=== PATIENT | female | born 1950 | race Hispanic/Latino ===

== ENCOUNTER 2017-08-31 03:38 | Emergency (ER) | payer MEDICARE ==
[2017-08-31] MEDS ORDERED: CEFTRIAXONE SODIUM 1 GM ONE (04:05)
[2017-08-31] MEDS ORDERED: LIDOCAINE HCL-MPF 1% 2ML VIAL ONE (04:05)
[2017-08-31] MEDS ORDERED: DEXAMETHASONE SOD PHOSPHATE 10MG/ML 1ML VIAL ONE (04:05)
[2017-08-31] MEDS ORDERED: IPRATROPIUM/ALBUTEROL SULFATE 3 ML SOLUTION IH ONE (04:24)
[2017-08-31 05:08] LABS: BASOPHILS % (AUTO) 0.4 % (0.0-5.0); EOSINOPHILS % (AUTO) 0.1 % (0.0-8.0); HEMATOCRIT 38.2 % (36-48); MEAN CORPUSCULAR HEMOGLOBIN 28.3 pg (27.0-33.0); MEAN CORPUSCULAR HGB CONC 33.5 g/dL (32.0-36.0); MEAN CORPUSCULAR VOLUME 84.5 fL (79-99); MONOCYTES % (AUTO) 11.1 % (3.0-13.0); NEUTROPHILS % (AUTO) 70.4 % (40.0-77.0); PLATELET COUNT (AUTO) 296 K/uL (130-400); RED BLOOD CELL COUNT(AUTO) 4.53 MIL/uL (4.00-5.50); RED CELL DISTRIBUTION WIDTH 14.6 % (11.0-15.5)
[2017-08-31 05:18] LABS: CREATININE 1.1 mg/dL (0.5-1.5); INR 0.92 (0.85-1.15); PARTIAL THROMBOPLASTIN TIME 27.3 SEC (26.3-35.5); POTASSIUM 3.6 mmol/L (3.5-5.1); PROTHROMBIN TIME 9.7 SEC (9.6-11.6)
[2017-08-31] MEDS ORDERED: IOPAMIDOL-370 75 ML VIAL IV ONE (05:37)
== END 2017-08-31 07:48 | disposition home or self-care (01) ==
LOC: EDH 03:38
DX: J45.901 Unspecified asthma with (acute) exacerbation (principal); J32.0 Chronic maxillary sinusitis; E11.9 Type 2 diabetes mellitus without complications; K21.9 Gastro-esophageal reflux disease without esophagitis; I10 Essential (primary) hypertension; Z88.6 Allergy status to analgesic agent; Z90.49 Acquired absence of other specified parts of digestive tract; Z90.710 Acquired absence of both cervix and uterus
CPT/HCPCS: 36415; 70491; 71250; 80048; 85025; 85610; 85730; 87804 ×2; 94640; 96372 ×2; 99285; J0696; J1100; J3490; Q9967

== ENCOUNTER 2018-04-09 12:52 | Observation (INO) | payer MEDICARE ==
[~2018-04-09] VITALS: Ht 154.9 cm; Wt 65.3 kg
[2018-04-09] MEDS ORDERED: ONDANSETRON HCL 4 MG/2 ML VIAL ONE (13:08)
[2018-04-09 13:11] LABS: BASOPHILS % (AUTO) 0.3 % (0.0-5.0); EOSINOPHILS % (AUTO) 0.6 % (0.0-8.0); LYMPHOCYTES % (AUTO) 22.8 % (21.0-51.0); MEAN CORPUSCULAR HEMOGLOBIN 28.3 pg (27.0-33.0); MEAN CORPUSCULAR HGB CONC 33.2 g/dL (32.0-36.0); MEAN CORPUSCULAR VOLUME 85.4 fL (79-99); MONOCYTES % (AUTO) 7.9 % (3.0-13.0); NEUTROPHILS % (AUTO) 68.4 % (40.0-77.0); PLATELET COUNT (AUTO) 260 K/uL (130-400); RED BLOOD CELL COUNT(AUTO) 4.92 MIL/uL (4.00-5.50); RED CELL DISTRIBUTION WIDTH 14.7 % (11.0-15.5); WHITE BLOOD COUNT (AUTO) 10.7 K/uL (4.8-10.8)
[2018-04-09 13:16] LABS: CREATININE 2.7 mg/dL (0.5-1.5); POTASSIUM 3.4 mmol/L (3.5-5.1)
[2018-04-09 13:21] LABS: ALBUMIN 4.5 g/dL (3.5-5.0); BILIRUBIN,TOTAL 0.4 mg/dL (0.2-1.0); TOTAL PROTEIN, SERUM 9.1 g/dL (6.0-8.3)
[2018-04-09 16:35] VITALS: BP 106/50
[2018-04-09] MEDS ORDERED: FLUO10CA21 PO (17:49)
[2018-04-09] MEDS ORDERED: AMLO1CAP6 PO (17:49)
[2018-04-09] MEDS ORDERED: DAPA10TA PO (17:49)
[2018-04-09] MEDS ORDERED: CETI-101 PO (17:49)
[2018-04-09] MEDS ORDERED: PANT40TA25 PO (17:49)
[2018-04-09] MEDS ORDERED: NAPR500T6 PO (17:49)
[2018-04-09] MEDS ORDERED: LOVA10TA2 PO (17:49)
[2018-04-09 19:00] VITALS: BP 119/55
[2018-04-09] MEDS ORDERED: ACETAMINOPHEN 325 MG TAB PO PRN (19:45)
[2018-04-09] MEDS: SODIUM CHLORIDE 0.9% 1000ML 1,000 ML IV SCH (20:01)
[2018-04-09 23:00] VITALS: BP 103/52
[2018-04-10] MEDS: SODIUM CHLORIDE 0.9% 1000ML 1,000 ML IV SCH ×2 (02:27→18:10)
[2018-04-10 03:00] VITALS: BP 105/45
[2018-04-10 05:26] LABS: HEMATOCRIT 33.6 % (36-48); MEAN CORPUSCULAR HEMOGLOBIN 29.5 pg (27.0-33.0); MEAN CORPUSCULAR HGB CONC 34.3 g/dL (32.0-36.0); MEAN CORPUSCULAR VOLUME 86.1 fL (79-99); PLATELET COUNT (AUTO) 209 K/uL (130-400); RED CELL DISTRIBUTION WIDTH 14.8 % (11.0-15.5)
[2018-04-10 05:48] LABS: CREATININE 1.5 mg/dL (0.5-1.5); POTASSIUM 3.5 mmol/L (3.5-5.1)
[2018-04-10] MEDS: INSULIN HUMULIN R 100 UNIT/ML 3ML SQ SCH ×3 (06:10→16:30)
[2018-04-10 08:05] VITALS: BP 104/54
[2018-04-10] MEDS ORDERED: FAMOTIDINE 20MG TAB 20 MG TAB PO SCH (09:00)
[2018-04-10 12:08] VITALS: BP 122/62
[2018-04-10 16:06] VITALS: BP 129/64
== END 2018-04-10 20:11 | disposition home or self-care (01) ==
LOC: EDH 12:52 → EDHIP 14:40 → 3CH 16:09
PROVIDERS: ADMIT Internal Medicine; ATTEND Internal Medicine
DX: K52.9 Noninfective gastroenteritis and colitis, unspecified (principal); E86.0 Dehydration; I10 Essential (primary) hypertension; E11.9 Type 2 diabetes mellitus without complications; K21.9 Gastro-esophageal reflux disease without esophagitis; Z90.710 Acquired absence of both cervix and uterus; R79.89 Other specified abnormal findings of blood chemistry
CPT/HCPCS: 36415 ×2; 74176; 80048; 80053; 82150; 82948 ×3; 83690; 84484; 85025; 85027; 87046; 87205; 87507; 93005; 96360; 96361 ×2; 99285; G0378 ×30; J2405; J7030

== ENCOUNTER → 2018-08-29 | Outpatient (CLI) | payer MEDICARE ==
[~2018-08-29] MED LIST: AMLO1CAP6 PO; CETI-101 PO; DAPA10TA PO; FLUO10CA21 PO; LOVA10TA2 PO; NAPR500T6 PO; PANT40TA25 PO
[2018-08-29 14:50] LABS: BILIRUBIN,TOTAL 0.3 mg/dL (0.2-1.0); CREATININE 1.5 mg/dL (0.5-1.5); POTASSIUM 4.7 mmol/L (3.5-5.1)
== END | disposition home or self-care (01) ==
LOC: LAB 13:45
PROVIDERS: ATTEND Internal Medicine Gastroenterology
DX: Q44.6 Cystic disease of liver (principal)
CPT/HCPCS: 36415; 80053

== ENCOUNTER → 2018-08-31 | Outpatient (CLI) | payer MEDICARE ==
[~2018-08-31] MED LIST changes: +IOHEXOL 350 MG/ML 100ML INFUS..BTL IV ONE
== END | disposition home or self-care (01) ==
LOC: RAH 07:35
PROVIDERS: ATTEND Internal Medicine Gastroenterology
DX: K76.89 Other specified diseases of liver (principal); N28.1 Cyst of kidney, acquired; Z90.49 Acquired absence of other specified parts of digestive tract
CPT/HCPCS: 74170; Q9967

== ENCOUNTER 2019-08-09 14:23 | Emergency (ER) | payer MEDICARE ==
[~2019-08-09 14:23] MED LIST changes: -CETI-101 PO; +CETI-109 PO; -IOHEXOL 350 MG/ML 100ML INFUS..BTL IV ONE
[2019-08-09 14:57] LABS: BASOPHILS % (AUTO) 0.5 % (0.0-5.0); EOSINOPHILS % (AUTO) 0.2 % (0.0-8.0); HEMATOCRIT 35.8 % (36-48); LYMPHOCYTES % (AUTO) 24.1 % (21.0-51.0); MEAN CORPUSCULAR HEMOGLOBIN 28.7 pg (27.0-33.0); MEAN CORPUSCULAR HGB CONC 34.1 g/dL (32.0-36.0); MEAN CORPUSCULAR VOLUME 84.2 fL (79-99); MONOCYTES % (AUTO) 7.6 % (3.0-13.0); PLATELET COUNT (AUTO) 233 K/uL (130-400); RED BLOOD CELL COUNT(AUTO) 4.25 MIL/uL (4.00-5.50); RED CELL DISTRIBUTION WIDTH 14.4 % (11.0-15.5); WHITE BLOOD COUNT (AUTO) 8.8 K/uL (4.8-10.8)
[2019-08-09 15:08] LABS: POTASSIUM 3.8 mmol/L (3.5-5.1)
[2019-08-09 15:09] LABS: INR 0.95 (0.85-1.15); PARTIAL THROMBOPLASTIN TIME 25.2 SEC (26.3-35.5)
[2019-08-09 15:15] LABS: ALBUMIN 3.8 g/dL (3.5-5.0); BILIRUBIN,TOTAL 0.3 mg/dL (0.2-1.0); TOTAL PROTEIN, SERUM 7.7 g/dL (6.0-8.3)
== END 2019-08-09 18:27 | disposition home or self-care (01) ==
LOC: EDH 14:23
DX: M54.12 Radiculopathy, cervical region (principal); R07.89 Other chest pain; I10 Essential (primary) hypertension; K21.9 Gastro-esophageal reflux disease without esophagitis; E11.9 Type 2 diabetes mellitus without complications; J45.909 Unspecified asthma, uncomplicated; E78.00 Pure hypercholesterolemia, unspecified; Z90.49 Acquired absence of other specified parts of digestive tract; Z90.710 Acquired absence of both cervix and uterus; Z88.5 Allergy status to narcotic agent; Z88.1 Allergy status to other antibiotic agents
CPT/HCPCS: 36415; 70450; 71045; 72125; 80053; 82550; 82948; 84484; 85025; 85610; 85730; 93005

== ENCOUNTER 2019-12-12 21:54 | Inpatient (IN) | payer MEDICARE ==
[~2019-12-12] VITALS: Ht 154.9 cm; Wt 73.9 kg
[~2019-12-12 21:54] MED LIST changes: -CETI-109 PO; +CETI-89 PO; -PANT40TA25 PO; +PANT40TA54 PO
[2019-12-12] MEDS ORDERED: ONDANSETRON HCL 4 MG/2 ML VIAL ONE (22:08)
[2019-12-12] MEDS ORDERED: SODIUM CHLORIDE 0.9% 1000ML 1,000 ML IV ONE ×2 (22:09→23:42)
[2019-12-12 22:19] LABS: APPEARANCE,URINE Clear (CLEAR); BILIRUBIN,URINE Negative (NEGATIVE); COLOR,URINE Yellow (YELLOW); GLUCOSE, URINE (UA) Negative (NEGATIVE); KETONES,URINE Negative (NEGATIVE); LEUKOCYTE ESTERASE ,URINE Moderate (NEGATIVE); NITRATE,URINE Negative (NEGATIVE); OCCULT BLOOD,URINE Negative (NEGATIVE); PROTEIN,URINE POS 1+ mg/dL (NEGATIVE)
[2019-12-12 22:31] LABS: BASOPHILS % (AUTO) 0.1 % (0.0-5.0); EOSINOPHILS % (AUTO) 0.3 % (0.0-8.0); HEMATOCRIT 38.7 % (36-48); LYMPHOCYTES % (AUTO) 12.9 % (21.0-51.0); MEAN CORPUSCULAR HEMOGLOBIN 27.4 pg (27.0-33.0); MEAN CORPUSCULAR HGB CONC 34.1 g/dL (32.0-36.0); MEAN CORPUSCULAR VOLUME 80.3 fL (79-99); MONOCYTES % (AUTO) 6.5 % (3.0-13.0); NEUTROPHILS % (AUTO) 79.5 % (40.0-77.0); PLATELET COUNT (AUTO) 283 K/uL (130-400); RED BLOOD CELL COUNT(AUTO) 4.82 MIL/uL (4.00-5.50); RED CELL DISTRIBUTION WIDTH 12.9 % (11.0-15.5); WHITE BLOOD COUNT (AUTO) 21.4 K/uL (4.8-10.8)
[2019-12-12 22:33] LABS: BACTERIA,URINE Moderate /HPF (None Seen); MUCUS,URINE Rare LPF (None Seen); RBC,URINE 0-1 /HPF (0-1); SQUAMOUS EPITHELIAL CELL,UR Rare /HPF (0-2)
[2019-12-12 22:43] LABS: CREATININE 1.2 mg/dL (0.5-1.5); POTASSIUM 3.6 mmol/L (3.5-5.1)
[2019-12-12] MEDS ORDERED: ZOSYN 3.375GM+NS 50ML 50 ML IV ONE ×2 (22:43→22:47)
[2019-12-12 22:48] LABS: ALBUMIN 3.9 g/dL (3.5-5.0); BILIRUBIN,TOTAL 0.3 mg/dL (0.2-1.0); TOTAL PROTEIN, SERUM 7.8 g/dL (6.0-8.3)
[2019-12-12] MEDS ORDERED: IOHEXOL-350 75 ML VIAL IV ONE (23:54)
[2019-12-13] MEDS ORDERED: METRONIDAZOLE 500MG/100ML BAG 100 ML ONE (04:28)
[2019-12-13] MEDS ORDERED: LEVOFLOXACIN 750 MG/D5W 150 ML 0 ML ONE (04:28)
[2019-12-13] MEDS ORDERED: SODIUM CHLORIDE 0.9% 1000ML 1,000 ML IV ONE (04:31)
[2019-12-13 08:30] VITALS: BP 136/57
[2019-12-13 08:47] VITALS: BP 136/57
[2019-12-13] MEDS: PANTOPRAZOLE 40 MG/VIAL IVP SCH (09:00)
[2019-12-13] MEDS: TRAMADOL HCL 50 MG TABLET PO PRN (11:52)
[2019-12-13] MEDS: SODIUM CHLORIDE 0.9% 1000ML 1,000 ML IV SCH (11:53)
[2019-12-13 12:00] VITALS: BP 135/63
[2019-12-13] MEDS: METRONIDAZOLE 500MG/100ML BAG 100 ML IVPB SCH ×2 (13:48→19:46)
--- NOTE | 2019-12-13 15:24 | NUR ---
MET W PATIENT FOR DISCHARGE PLANNING LIVES [facility], IS INDEPENDENT, NO DME, NO HH, NO PROVIDER FAMILY IN [place], SISTER MERC[facility] WILL PROVIDE TRANSPORT HOME Addendum: 12/13/19 at 1526 by KIERA ASENCIO RN CM Amended: Links added.
--- NOTE | 2019-12-13 15:26 | NUR ---
DISPO TO HOME, NO SERVICES ANTICIPATED Addendum: 12/13/19 at 1529 by KIERA ASENCIO RN CM Amended: Links added.
[2019-12-13 16:00] VITALS: BP 135/63
[2019-12-13 19:10] VITALS: BP 141/62
[2019-12-13] MEDS ORDERED: ZOSYN 3.375GM+NS 50ML 50 ML IV ONE (19:41)
[2019-12-13] MEDS ORDERED: MORPHINE SULFATE 2 MG/ML 1ML SYG ONE (19:41)
[2019-12-13] MEDS ORDERED: CEFTRIAXONE SODIUM 1 GM IVP ONE (19:45)
[2019-12-13] MEDS: ZOSYN 3.375GM+NS 50ML 50 ML IV SCH (19:45)
[2019-12-13] MEDS ORDERED: MORPHINE SULFATE 2 MG/ML 1ML SYG IVP PRN (19:45)
[2019-12-13] MEDS ORDERED: CEFTRIAXONE SODIUM 1 GM ONE (19:58)
--- NOTE | 2019-12-13 20:33 | NUR ---
1 mg of morphine given at 194
[2019-12-13 23:13] VITALS: BP 130/62
[2019-12-14] MEDS: ZOSYN 3.375GM+NS 50ML 50 ML IV SCH ×3 (03:11→20:08)
[2019-12-14] MEDS: SODIUM CHLORIDE 0.9% 1000ML 1,000 ML IV SCH ×2 (03:11→18:35)
[2019-12-14] MEDS: METRONIDAZOLE 500MG/100ML BAG 100 ML IVPB SCH ×3 (03:13→20:08)
[2019-12-14 03:30] VITALS: BP 128/62
[2019-12-14 03:58] LABS: HEMATOCRIT 33.1 % (36-48); MEAN CORPUSCULAR HEMOGLOBIN 28.2 pg (27.0-33.0); MEAN CORPUSCULAR HGB CONC 34.1 g/dL (32.0-36.0); MEAN CORPUSCULAR VOLUME 82.5 fL (79-99); RED BLOOD CELL COUNT(AUTO) 4.01 MIL/uL (4.00-5.50); RED CELL DISTRIBUTION WIDTH 12.8 % (11.0-15.5); WHITE BLOOD COUNT (AUTO) 7.6 K/uL (4.8-10.8)
[2019-12-14 04:26] LABS: ALBUMIN 2.9 g/dL (3.5-5.0); BILIRUBIN,TOTAL 0.3 mg/dL (0.2-1.0); POTASSIUM 3.8 mmol/L (3.5-5.1); TOTAL PROTEIN, SERUM 6.1 g/dL (6.0-8.3)
[2019-12-14 08:00] VITALS: BP 157/72
[2019-12-14] MEDS: PANTOPRAZOLE 40 MG/VIAL IVP SCH (08:30)
[2019-12-14] MEDS: TRAMADOL HCL 50 MG TABLET PO PRN (08:38)
[2019-12-14] MEDS ORDERED: LEVOFLOXACIN 750 MG/D5W 150 ML 150 ML IV SCH (09:00)
[2019-12-14] MEDS ORDERED: LOSA50TA64 PO (11:23)
[2019-12-14] MEDS ORDERED: AMLO-257 PO (11:23)
[2019-12-14] MEDS ORDERED: FLUO10CA23 PO (11:23)
[2019-12-14] MEDS ORDERED: CETI10TA57 PO (11:23)
[2019-12-14] MEDS ORDERED: SITA100T12 PO (11:23)
[2019-12-14 11:28] VITALS: BP 162/62
[2019-12-14] MEDS: ONDANSETRON HCL 4 MG/2 ML VIAL IVP PRN ×2 (12:22→20:08)
[2019-12-14 16:00] VITALS: BP 150/60
[2019-12-14 19:50] VITALS: BP 153/57
--- NOTE | 2019-12-14 20:08 | NUR ---
nausea c/o nausea, no vomiting, zofran 4 mg ivp given as ordered, continue ivf as ordered
[2019-12-14] MEDS ORDERED: ACET-2247 PO (20:56)
--- NOTE | 2019-12-14 21:00 | NUR ---
med effect nausea subsided, continue ivf as ordered
[2019-12-15 00:01] VITALS: BP 120/48
[2019-12-15] MEDS: ZOSYN 3.375GM+NS 50ML 50 ML IV SCH ×3 (03:43→21:19)
[2019-12-15] MEDS: METRONIDAZOLE 500MG/100ML BAG 100 ML IVPB SCH ×3 (03:43→21:10)
[2019-12-15 04:07] VITALS: BP 128/58
[2019-12-15] MEDS: ONDANSETRON HCL 4 MG/2 ML VIAL IVP PRN ×3 (05:33→18:19)
[2019-12-15 08:00] VITALS: BP 135/71
[2019-12-15 09:51] LABS: HEMATOCRIT 35.1 % (36-48); MEAN CORPUSCULAR HEMOGLOBIN 27.9 pg (27.0-33.0); MEAN CORPUSCULAR HGB CONC 33.9 g/dL (32.0-36.0); MEAN CORPUSCULAR VOLUME 82.4 fL (79-99); PLATELET COUNT (AUTO) 230 K/uL (130-400); RED BLOOD CELL COUNT(AUTO) 4.26 MIL/uL (4.00-5.50); RED CELL DISTRIBUTION WIDTH 12.7 % (11.0-15.5); WHITE BLOOD COUNT (AUTO) 7.6 K/uL (4.8-10.8)
[2019-12-15 10:00] LABS: CREATININE 1.1 mg/dL (0.5-1.5); POTASSIUM 3.6 mmol/L (3.5-5.1)
[2019-12-15 10:12] LABS: EOSINOPHILS % (MANUAL) 1 % (1-6); LYMPHOCYTES % (MANUAL) 19 % (22-44); MAN.DIFF COMMENT-IMPRESSION MANUAL DIFFERENTIAL; MONOCYTES % (MANUAL) 14 % (2-9); PLATELET MORPHOLOGY COMMENT ADEQUATE; REACTIVE LYMPHOCYTES 4 % (0-0); SEGMENTED NEUTROPHILS % 62 % (40-70)
[2019-12-15] MEDS: SODIUM CHLORIDE 0.9% 1000ML 1,000 ML IV SCH (11:25)
[2019-12-15] MEDS: PANTOPRAZOLE 40 MG/VIAL IVP SCH (11:25)
[2019-12-15] MEDS: ACETAMINOPHEN 325 MG TAB PO PRN ×2 (11:26→16:47)
[2019-12-15] MEDS: INSULIN HUMULIN R 100 UNIT/ML 3ML SQ SCH ×3 (11:30→21:00)
[2019-12-15 12:00] VITALS: BP 155/71
--- NOTE | 2019-12-15 13:03 | NUR ---
GI consult Per Dr. Pritchard, recommends that patient remain NPO and surgery to be consulted. Left message for Dr. Garrett regarding recommendation. Pending approval to place surgery consult.
[2019-12-15 16:00] VITALS: BP 140/61
[2019-12-15 20:00] VITALS: BP 166/60
--- NOTE | 2019-12-15 20:00 | NUR ---
PM Assessment Received pt with NS at 75cc/hr infusing well, routine assessment done, plan of care discuss, reminded NPO for now, made aware we are still pending surgical consult at this time. Per pt stated she would like to have surgery to resolved her problem of on & off abdominal discomfort. At this time c/o of headache secondary to feeling nauseated. Pt made aware that she was just medicated with Zofran at around 1800. Offered & agreed to have ice pack application into her head area & I will continue to monitor how she is, agreed.
--- NOTE | 2019-12-15 20:30 | NUR ---
Re: headache Pt re-evaluated re: her headache after application of cold compress. Per pt stated the ice pack help, now feeling OK & also requested to have ice pack on both her shoulder area, done. Per pt stated now she will try to go to sleep.
--- NOTE | 2019-12-15 20:33 | NUR ---
Per Dr. Garrett, place patient on [facility]. No surgeon call, consult to wait til Wednesday.
[2019-12-16] VITALS (7 sets, daily range): BP systolic 136–162; BP diastolic 57–69
[2019-12-16] MEDS: SODIUM CHLORIDE 0.9% 1000ML 1,000 ML IV SCH ×2 (01:14→12:30)
[2019-12-16] MEDS: ZOSYN 3.375GM+NS 50ML 50 ML IV SCH ×3 (04:05→19:47)
[2019-12-16] MEDS: METRONIDAZOLE 500MG/100ML BAG 100 ML IVPB SCH ×3 (04:05→19:47)
[2019-12-16] MEDS: INSULIN HUMULIN R 100 UNIT/ML 3ML SQ SCH ×4 (07:30→21:00)
[2019-12-16] MEDS: AMLODIPINE BESYLATE 5 MG TAB PO SCH (09:14)
[2019-12-16] MEDS: PANTOPRAZOLE 40 MG/VIAL IVP SCH (09:15)
[2019-12-16] MEDS: LOSARTAN 50 MG TABLET PO SCH (09:15)
[2019-12-16] MEDS: TRAMADOL HCL 50 MG TABLET PO PRN (11:27)
[2019-12-16] MEDS: ONDANSETRON HCL 4 MG/2 ML VIAL IVP PRN (19:47)
[2019-12-17 03:36] VITALS: BP 141/66
[2019-12-17] MEDS: ZOSYN 3.375GM+NS 50ML 50 ML IV SCH ×3 (04:41→21:24)
[2019-12-17] MEDS: METRONIDAZOLE 500MG/100ML BAG 100 ML IVPB SCH ×3 (04:41→21:25)
[2019-12-17] MEDS: INSULIN HUMULIN R 100 UNIT/ML 3ML SQ SCH ×4 (06:14→21:32)
[2019-12-17] MEDS: SODIUM CHLORIDE 0.9% 1000ML 1,000 ML IV SCH ×3 (06:14→23:54)
[2019-12-17 08:25] VITALS: BP 160/61
[2019-12-17] MEDS: AMLODIPINE BESYLATE 5 MG TAB PO SCH (08:35)
[2019-12-17] MEDS: PANTOPRAZOLE 40 MG/VIAL IVP SCH (08:36)
[2019-12-17] MEDS: LOSARTAN 50 MG TABLET PO SCH (08:36)
[2019-12-17 11:56] VITALS: BP 155/53
[2019-12-17] MEDS ORDERED: ZOSYN 3.375GM+NS 50ML 50 ML IV ONE (12:02)
[2019-12-17 17:09] VITALS: BP 153/71
[2019-12-17] MEDS: TRAMADOL HCL 50 MG TABLET PO PRN (18:43)
[2019-12-17 19:00] VITALS: BP 140/61
--- NOTE | 2019-12-17 21:25 | NUR ---
MEDS SHIFT ASSESSMENT DONE, PLEASE REFER TO CHART. DUE MEDS ADMINISTERED, TOLERATED WELL. KEPT RESTED AND COMFORTABLE. CALL LIGHT WITHIN REACH. WILL MONITOR PT. Addendum: 12/17/19 at 2333 by MALISSA VANEGAS RN RN Amended: Links added.
[2019-12-17 23:00] VITALS: BP 129/53
--- NOTE | 2019-12-18 02:00 | NUR ---
ROUNDS PT RESTING WELL, NO DISTRESS NOTED. KEPT RESTED AND COMFORTABLE. CALL LIGHT WITHIN REACH. WILL MONITOR PT.
[2019-12-18 03:00] VITALS: BP 146/66
[2019-12-18] MEDS: METRONIDAZOLE 500MG/100ML BAG 100 ML IVPB SCH ×3 (03:24→20:51)
[2019-12-18] MEDS: ZOSYN 3.375GM+NS 50ML 50 ML IV SCH ×3 (03:24→20:51)
[2019-12-18] MEDS: SODIUM CHLORIDE 0.9% 1000ML 1,000 ML IV SCH ×2 (03:24→18:55)
--- NOTE | 2019-12-18 05:15 | NUR ---
SHOWER PT HAD HER SHOWER, TOLERATED WELL. DENIES ANY ABDOMINAL DISCOMFORT AT THIS TIME. NO DISTRESS NOTED. PLACED BACK ON IVF AND IV ZOSYN INFUSIONS. FOR MORE CARE.
[2019-12-18] MEDS: INSULIN HUMULIN R 100 UNIT/ML 3ML SQ SCH ×4 (05:55→20:56)
[2019-12-18 07:30] VITALS: BP 159/71
[2019-12-18 11:00] VITALS: BP 159/53
[2019-12-18] MEDS: LOSARTAN 50 MG TABLET PO SCH (11:04)
[2019-12-18] MEDS: AMLODIPINE BESYLATE 5 MG TAB PO SCH (11:04)
[2019-12-18] MEDS: PANTOPRAZOLE 40 MG/VIAL IVP SCH (11:04)
[2019-12-18 16:00] VITALS: BP 159/53
[2019-12-18 20:25] VITALS: BP 145/60
[2019-12-18 23:57] VITALS: BP 145/62
[2019-12-19 03:47] VITALS: BP 128/60
[2019-12-19] MEDS: METRONIDAZOLE 500MG/100ML BAG 100 ML IVPB SCH ×2 (03:52→13:49)
[2019-12-19] MEDS: ZOSYN 3.375GM+NS 50ML 50 ML IV SCH ×2 (03:52→13:49)
[2019-12-19] MEDS: ACETAMINOPHEN 325 MG TAB PO PRN ×2 (03:52→10:42)
[2019-12-19] MEDS: SODIUM CHLORIDE 0.9% 1000ML 1,000 ML IV SCH (06:41)
[2019-12-19] MEDS: INSULIN HUMULIN R 100 UNIT/ML 3ML SQ SCH (06:42)
[2019-12-19 07:30] VITALS: BP 148/58
[2019-12-19] MEDS: LOSARTAN 50 MG TABLET PO SCH (10:41)
[2019-12-19] MEDS: AMLODIPINE BESYLATE 5 MG TAB PO SCH (10:41)
[2019-12-19] MEDS: PANTOPRAZOLE 40 MG/VIAL IVP SCH (10:41)
[2019-12-19 11:00] VITALS: BP 154/62
[2019-12-19 16:00] VITALS: BP 134/61
[2019-12-19 19:35] VITALS: BP 156/73
--- NOTE | 2019-12-19 20:45 | NUR ---
Discharge instructions given to patient, verbalized understanding. Saline lock had already been removed with catheter intact. Patient taken via wheelchair to private car.
== END 2019-12-19 19:55 | disposition home or self-care (01) | DRG 872 ==
LOC: EDH 21:54 → EDHIP 12-13 01:54 → OBSVTOIN 12-13 01:54 → 3BH 12-13 07:44
PROVIDERS: ADMIT Internal Medicine; ATTEND Internal Medicine
DX: A41.9 Sepsis, unspecified organism (principal); N39.0 Urinary tract infection, site not specified; K57.32 Diverticulitis of large intestine without perforation or abscess without bleeding; E78.5 Hyperlipidemia, unspecified; I10 Essential (primary) hypertension; E11.9 Type 2 diabetes mellitus without complications; B96.1 Klebsiella pneumoniae [K. pneumoniae] as the cause of diseases classified elsewhere; Z88.1 Allergy status to other antibiotic agents; Z83.2 Family history of diseases of the blood and blood-forming organs and certain disorders involving the immune mechanism; Z82.49 Family history of ischemic heart disease and other diseases of the circulatory system; Z82.69 Family history of other diseases of the musculoskeletal system and connective tissue; Z82.3 Family history of stroke; Z83.6 Family history of other diseases of the respiratory system; Z80.9 Family history of malignant neoplasm, unspecified; Z90.711 Acquired absence of uterus with remaining cervical stump; Z90.49 Acquired absence of other specified parts of digestive tract
CPT/HCPCS: 36415; 74177; 80048; 80053; 81001; 82948; 83605; 83690; 85025; 85027; 87040; 87077; 87088; 87186; 99291; C9113; G0378; J0696; J1815; J1956; J2405; J2543; J3490; J7030; Q9967

== ENCOUNTER 2020-04-23 13:47 | Emergency (ER) | payer MEDICARE ==
[~2020-04-23 13:47] MED LIST changes: +ACET-2247 PO; +AMLO-257 PO; -AMLO1CAP6 PO; -CETI-89 PO; +CETI10TA57 PO; -DAPA10TA PO; -FLUO10CA21 PO; +FLUO10CA23 PO; +LOSA50TA64 PO; -LOVA10TA2 PO; -NAPR500T6 PO; -PANT40TA54 PO; +SITA100T12 PO
[2020-04-23] MEDS ORDERED: ADENOSINE 3 MG/ML 2ML VIAL IV ONE (14:08)
[2020-04-23 14:13] LABS: BASOPHILS % (AUTO) 0.7 % (0.0-5.0); EOSINOPHILS % (AUTO) 1.9 % (0.0-8.0); HEMATOCRIT 39.5 % (36-48); LYMPHOCYTES % (AUTO) 31.7 % (21.0-51.0); MEAN CORPUSCULAR HEMOGLOBIN 28.4 pg (27.0-33.0); MEAN CORPUSCULAR HGB CONC 34.2 g/dL (32.0-36.0); MEAN CORPUSCULAR VOLUME 83.2 fL (79-99); NEUTROPHILS % (AUTO) 59.3 % (40.0-77.0); PLATELET COUNT (AUTO) 293 K/uL (130-400); RED BLOOD CELL COUNT(AUTO) 4.75 MIL/uL (4.00-5.50); RED CELL DISTRIBUTION WIDTH 12.8 % (11.0-15.5)
[2020-04-23] MEDS ORDERED: METOPROLOL TARTRATE 1 MG/ML 5ML VIAL IV ONE (14:14)
[2020-04-23 14:28] LABS: CREATININE 1.2 mg/dL (0.5-1.5); POTASSIUM 3.7 mmol/L (3.5-5.1)
[2020-04-23 14:29] LABS: INR 0.91 (0.85-1.15); PARTIAL THROMBOPLASTIN TIME 29.2 SEC (26.3-35.5); PROTHROMBIN TIME 9.9 SEC (9.6-11.6)
[2020-04-23 14:33] LABS: ALBUMIN 4.4 g/dL (3.5-5.0); BILIRUBIN,TOTAL 0.4 mg/dL (0.2-1.0); TOTAL PROTEIN, SERUM 8.8 g/dL (6.0-8.3)
[2020-06-16] MEDS ORDERED: APIX2.5T PO (10:54)
[2020-06-16] MEDS ORDERED: PANT40TA55 PO (10:54)
== END 2020-04-23 16:34 | disposition home or self-care (01) ==
LOC: EDH 13:47
DX: I47.1 Supraventricular tachycardia (principal); J45.909 Unspecified asthma, uncomplicated; E11.9 Type 2 diabetes mellitus without complications; I10 Essential (primary) hypertension; E78.00 Pure hypercholesterolemia, unspecified; K21.9 Gastro-esophageal reflux disease without esophagitis; Z88.1 Allergy status to other antibiotic agents; Z88.6 Allergy status to analgesic agent; Z90.710 Acquired absence of both cervix and uterus; Z98.890 Other specified postprocedural states
CPT/HCPCS: 36415; 71045; 80053; 82550; 84484; 85025; 85610; 85730; 93005; 96361; 96374; 96375; 99285; J0153; J3490

== ENCOUNTER → 2020-04-29 | Outpatient (CLI) | payer MEDICARE | END | disposition home or self-care (01) | LOC: RAH 13:03 | PROVIDERS: ATTEND Internal Medicine | DX: Z12.31 Encounter for screening mammogram for malignant neoplasm of breast (principal); N64.89 Other specified disorders of breast | CPT/HCPCS: 77067 ==

== ENCOUNTER 2020-09-10 14:47 | Emergency (ER) | payer MEDICARE ==
[~2020-09-10 14:47] MED LIST changes: +APIX2.5T PO; +PANT40TA55 PO
[2020-09-10] MEDS ORDERED: IBUPROFEN 400 MG TABLET ONE (15:29)
[2020-09-10] MEDS ORDERED: ACETAMINOPHEN EXTRA STRENGTH 500 MG TABLET ONE (15:30)
[2020-09-10] MEDS ORDERED: IBUPROFEN 200 MG TAB ONE (15:30)
[2020-09-10 15:34] LABS: BASOPHILS % (AUTO) 0.7 % (0.0-5.0); EOSINOPHILS % (AUTO) 0.2 % (0.0-8.0); HEMATOCRIT 35.1 % (36-48); MEAN CORPUSCULAR HEMOGLOBIN 27.5 pg (27.0-33.0); MEAN CORPUSCULAR HGB CONC 34.2 g/dL (32.0-36.0); MEAN CORPUSCULAR VOLUME 80.3 fL (79-99); MONOCYTES % (AUTO) 5.9 % (3.0-13.0); PLATELET COUNT (AUTO) 210 K/uL (130-400); RED BLOOD CELL COUNT(AUTO) 4.37 MIL/uL (4.00-5.50); RED CELL DISTRIBUTION WIDTH 13.7 % (11.0-15.5); WHITE BLOOD COUNT (AUTO) 6.1 K/uL (4.8-10.8)
[2020-09-10 15:41] LABS: APPEARANCE,URINE Clear (CLEAR); BILIRUBIN,URINE Negative (NEGATIVE); COLOR,URINE Yellow (YELLOW); GLUCOSE, URINE (UA) Negative (NEGATIVE); KETONES,URINE Negative (NEGATIVE); LEUKOCYTE ESTERASE ,URINE Negative (NEGATIVE); NITRATE,URINE Negative (NEGATIVE); OCCULT BLOOD,URINE Negative (NEGATIVE); PH,URINE 6.5 (5.0-8.0); PROTEIN,URINE Trace mg/dL (NEGATIVE); UROBILINOGEN,URINE 0.2 mg/dL (0.2-1.0)
[2020-09-10 15:46] LABS: RAPID GROUP A STREP NEGATIVE (NEGATIVE)
[2020-09-10 15:47] LABS: POTASSIUM 3.2 mmol/L (3.5-5.1)
[2020-09-10 15:49] LABS: BACTERIA,URINE Rare /HPF (None Seen); RBC,URINE None Seen /HPF (0-1); SQUAMOUS EPITHELIAL CELL,UR 0-2 /HPF (0-2); WBC,URINE 0-1 /HPF (0-1)
[2020-09-10 15:50] LABS: INR 1.02 (0.85-1.15); PROTHROMBIN TIME 11.1 SEC (9.6-11.6)
[2020-09-10 15:51] LABS: PARTIAL THROMBOPLASTIN TIME 28.2 SEC (26.3-35.5)
[2020-09-10 15:52] LABS: BILIRUBIN,TOTAL 0.4 mg/dL (0.2-1.0); TOTAL PROTEIN, SERUM 7.8 g/dL (6.0-8.3)
[2020-09-10] MEDS ORDERED: POTASSIUM BICARB/CIT AC 25 MEQ TABLET.EFF ONE (15:56)
[2020-09-10 16:00] LABS: B-TYPE NATRIURETIC PEPTIDE 25 pg/mL (0-100)
[2020-09-13] MEDS ORDERED: OMEP40CA13 PO (17:56)
[2020-09-13] MEDS ORDERED: CETI10TA86 PO (17:56)
== END 2020-09-10 17:40 | disposition home or self-care (01) ==
LOC: EDH 14:47
DX: B34.9 Viral infection, unspecified (principal); Z20.822 Contact with and (suspected) exposure to COVID-19; E11.9 Type 2 diabetes mellitus without complications; I10 Essential (primary) hypertension; E78.00 Pure hypercholesterolemia, unspecified; J45.909 Unspecified asthma, uncomplicated; Z88.1 Allergy status to other antibiotic agents; Z88.6 Allergy status to analgesic agent; Z90.49 Acquired absence of other specified parts of digestive tract; Z90.710 Acquired absence of both cervix and uterus
CPT/HCPCS: 36415; 71045; 80053; 81001; 82550; 83605; 83880; 84145; 85025; 85610; 85730; 87040 ×2; 87426; 87804 ×2; 87880; 93005; 96360; 96361; 99285; J7030; U0003

== ENCOUNTER 2020-09-12 23:38 | Inpatient (IN) | payer MEDICARE ==
[~2020-09-12] VITALS: Ht 154.9 cm; Wt 72.6 kg
[~2020-09-12 23:38] MED LIST changes: -FLUO10CA23 PO; +FLUO10CA24 PO
[2020-09-13] MEDS ORDERED: CEFTRIAXONE 2GM VIAL ONE (00:01)
[2020-09-13] MEDS ORDERED: ACETAMINOPHEN 500 MG TABLET ONE (00:02)
[2020-09-13] MEDS ORDERED: 0.9%NACL 50ML 50 ML IV ONE (00:02)
[2020-09-13 00:03] LABS: BASOPHILS % (AUTO) 0.6 % (0.0-5.0); EOSINOPHILS % (AUTO) 0.4 % (0.0-8.0); HEMATOCRIT 33.6 % (36-48); LYMPHOCYTES % (AUTO) 27.8 % (21.0-51.0); MEAN CORPUSCULAR HEMOGLOBIN 26.6 pg (27.0-33.0); MEAN CORPUSCULAR HGB CONC 33.6 g/dL (32.0-36.0); MEAN CORPUSCULAR VOLUME 79.1 fL (79-99); PLATELET COUNT (AUTO) 197 K/uL (130-400); RED BLOOD CELL COUNT(AUTO) 4.25 MIL/uL (4.00-5.50); RED CELL DISTRIBUTION WIDTH 13.5 % (11.0-15.5)
[2020-09-13 00:16] LABS: CARBON DIOXIDE 24 mmol/L (21-32); CHLORIDE 101 mmol/L (101-111); CREATININE 1.1 mg/dL (0.5-1.5); GLOMERULAR FILTR. RATE CALC 52 mL/min (>60); GLUCOSE,RANDOM 168 mg/dL (70-105); POTASSIUM 3.4 mmol/L (3.5-5.1); SODIUM SERUM 136 mmol/L (136-145); UREA NITROGEN, BLOOD 9 mg/dL (7-18)
[2020-09-13 00:21] LABS: INR 1.03 (0.85-1.15); PROTHROMBIN TIME 11.2 SEC (9.6-11.6)
[2020-09-13 00:22] LABS: PARTIAL THROMBOPLASTIN TIME 29.2 SEC (26.3-35.5)
[2020-09-13 00:27] LABS: ALANINE AMINOTRANSFERASE 31 U/L (12-78); ALBUMIN 3.8 g/dL (3.5-5.0); ASPARTATE AMINOTRANSFERASE 30 U/L (10-37); BILIRUBIN,TOTAL 0.4 mg/dL (0.2-1.0); CREATINE KINASE, TOTAL 113 U/L (21-232); MYOGLOBIN 45 ng/mL (10-92); TROPONIN I < 0.04 ng/mL (0.00-0.06)
[2020-09-13 00:50] LABS: B-TYPE NATRIURETIC PEPTIDE 19 pg/mL (0-100)
[2020-09-13 01:25] LABS: APPEARANCE,URINE Clear (CLEAR); BILIRUBIN,URINE Negative (NEGATIVE); COLOR,URINE Yellow (YELLOW); GLUCOSE, URINE (UA) Negative (NEGATIVE); KETONES,URINE Negative (NEGATIVE); LEUKOCYTE ESTERASE ,URINE Trace (NEGATIVE); NITRATE,URINE Negative (NEGATIVE); OCCULT BLOOD,URINE Negative (NEGATIVE); PH,URINE 6.5 (5.0-8.0); PROTEIN,URINE Trace mg/dL (NEGATIVE); UROBILINOGEN,URINE 0.2 mg/dL (0.2-1.0)
[2020-09-13 01:37] LABS: BACTERIA,URINE None Seen /HPF (None Seen); RBC,URINE None Seen /HPF (0-1); WBC,URINE 0-1 /HPF (0-1)
[2020-09-13 04:43] LABS: BASOPHILS % (AUTO) 0.4 % (0.0-5.0); LYMPHOCYTES % (AUTO) 34.5 % (21.0-51.0); MEAN CORPUSCULAR HEMOGLOBIN 27.2 pg (27.0-33.0); MONOCYTES % (AUTO) 8.4 % (3.0-13.0); NEUTROPHILS % (AUTO) 56.5 % (40.0-77.0); PLATELET COUNT (AUTO) 176 K/uL (130-400); RED BLOOD CELL COUNT(AUTO) 3.75 MIL/uL (4.00-5.50); RED CELL DISTRIBUTION WIDTH 13.7 % (11.0-15.5); WHITE BLOOD COUNT (AUTO) 4.9 K/uL (4.8-10.8)
[2020-09-13 04:50] LABS: CREATININE 1.1 mg/dL (0.5-1.5); MAGNESIUM 1.5 mg/dL (1.80-2.40); POTASSIUM 3.4 mmol/L (3.5-5.1)
[2020-09-13] MEDS ORDERED: DEXTROSE 50%-WATER 50 ML DISP.SYRIN IV PRN (05:00)
[2020-09-13] MEDS ORDERED: ONDANSETRON ODT 4MG TAB PO PRN (05:00)
[2020-09-13] MEDS ORDERED: GLUCAGON 1MG KIT 1 MG ML IM PRN (05:00)
[2020-09-13 05:07] LABS: HEMOGLOBIN A1C 7.5 % (4.0-6.0)
[2020-09-13] MEDS: CEFEPIME HCL 1 GM VIAL IVP SCH ×3 (06:00→22:13)
[2020-09-13] MEDS: INSULIN R PO SS1 SQ SCH ×4 (07:30→21:00)
[2020-09-13] MEDS ORDERED: ENOXAPARIN SODIUM 30 MG/0.3 ML SQ ONE (07:31)
[2020-09-13] MEDS ORDERED: DOXYCYCLINE HYCLATE 100 MG TABLET PO ONE (07:31)
[2020-09-13] MEDS ORDERED: ACETAMINOPHEN 325 MG TAB ONE ×2 (08:01→15:28)
[2020-09-13] MEDS: ENOXAPARIN SODIUM 30 MG/0.3 ML SQ SCH (09:00)
[2020-09-13] MEDS: DOXYCYCLINE HYCLATE 100 MG TABLET PO SCH ×2 (09:00→19:49)
[2020-09-13] MEDS ORDERED: TRAMADOL HCL 50 MG TABLET ONE (13:55)
[2020-09-13] MEDS ORDERED: 0.9%NACL 100ML 100 ML IV ONE (14:07)
[2020-09-13] MEDS ORDERED: CEFEPIME HCL 1 GM VIAL ONE (14:07)
[2020-09-13] MEDS ORDERED: DEXAMETHASONE SOD PHOSPHATE 10MG/ML 1ML VIAL ONE (16:13)
[2020-09-13 16:40] VITALS: BP 152/77
[2020-09-13] MEDS ORDERED: OMEP40CA21 PO (17:56)
[2020-09-13] MEDS ORDERED: FLUO10CA21 PO (17:56)
[2020-09-13] MEDS ORDERED: AMLO-257 PO (17:56)
[2020-09-13] MEDS ORDERED: CETI10TA87 PO (17:56)
[2020-09-13] MEDS ORDERED: SITA100T12 PO (17:56)
[2020-09-13] MEDS ORDERED: LOSA50TA64 PO (17:56)
[2020-09-13] MEDS: ACETAMINOPHEN 325 MG TAB PO PRN (19:50)
[2020-09-13 20:00] VITALS: BP 148/64
[2020-09-13] MEDS: TRAMADOL HCL 50 MG TABLET PO PRN (22:13)
[2020-09-14 00:01] VITALS: BP 148/77
[2020-09-14] MEDS ORDERED: POTASSIUM CHLORIDE 20MEQ/100ML 100 ML IV PRN (00:45)
[2020-09-14] MEDS ORDERED: MAGNESIUM 2GM PREMIX 50ML 50 ML IV PRN (00:45)
[2020-09-14] MEDS ORDERED: LIDOCAINE HCL-MPF 1% 2ML VIAL IV PRN (00:45)
[2020-09-14] MEDS ORDERED: POTASSIUM CHLORIDE 10% ELIXIR 20 MEQ/15 ML UDCUP PO PRN (00:45)
[2020-09-14 04:17] VITALS: BP 149/69
[2020-09-14] MEDS: ACETAMINOPHEN 325 MG TAB PO PRN ×2 (05:08→17:43)
[2020-09-14] MEDS: INSULIN R PO SS1 SQ SCH ×4 (05:50→21:00)
[2020-09-14] MEDS: CEFEPIME HCL 1 GM VIAL IVP SCH ×3 (05:50→22:42)
[2020-09-14 05:57] LABS: HEMATOCRIT 32.8 % (36-48); MEAN CORPUSCULAR HEMOGLOBIN 26.4 pg (27.0-33.0); MEAN CORPUSCULAR HGB CONC 32.6 g/dL (32.0-36.0); RED BLOOD CELL COUNT(AUTO) 4.05 MIL/uL (4.00-5.50); RED CELL DISTRIBUTION WIDTH 13.5 % (11.0-15.5)
[2020-09-14 06:20] LABS: MAGNESIUM 1.4 mg/dL (1.80-2.40); POTASSIUM 3.7 mmol/L (3.5-5.1)
[2020-09-14 07:30] VITALS: BP 135/56
[2020-09-14] MEDS ORDERED: DIATR MEGLU/DIATRIZOATE SODIUM 30 ML BOTTLE ONE (08:01)
[2020-09-14] MEDS ORDERED: IOHEXOL 350 MG/ML 100ML INFUS..BTL IV ONE (11:13)
[2020-09-14] MEDS: ENOXAPARIN SODIUM 30 MG/0.3 ML SQ SCH (11:54)
[2020-09-14] MEDS: DOXYCYCLINE HYCLATE 100 MG TABLET PO SCH ×2 (11:54→20:19)
[2020-09-14] MEDS: TRAMADOL HCL 50 MG TABLET PO PRN (12:37)
[2020-09-14] MEDS: 0.9%NACL 1000ML 1,000 ML IV SCH (13:32)
[2020-09-14] MEDS ORDERED: DOCUSATE SODIUM 100 MG CAP PO SCH (14:50)
[2020-09-14] MEDS: INSULIN LISPRO 100 UNIT/ML 3ML SQ SCH (16:49)
[2020-09-14 17:50] VITALS: BP 149/77
[2020-09-14 20:00] VITALS: BP 143/67
[2020-09-14] MEDS: FAMOTIDINE 20MG TAB PO SCH (20:19)
[2020-09-15] VITALS (8 sets, daily range): BP systolic 141–159; BP diastolic 69–83
[2020-09-15] MEDS: 0.9%NACL 1000ML 1,000 ML IV SCH ×2 (01:49→16:54)
[2020-09-15] MEDS: CEFEPIME HCL 1 GM VIAL IVP SCH ×3 (05:26→21:26)
[2020-09-15] MEDS: INSULIN R PO SS1 SQ SCH ×4 (05:48→21:00)
[2020-09-15 06:04] LABS: CREATININE 0.9 mg/dL (0.5-1.5); MAGNESIUM 1.9 mg/dL (1.80-2.40); POTASSIUM 3.3 mmol/L (3.5-5.1)
[2020-09-15] MEDS: KCL 20 MEQ ERTAB PO PRN ×3 (06:08→12:24)
[2020-09-15] MEDS: INSULIN LISPRO 100 UNIT/ML 3ML SQ SCH ×2 (06:47→16:30)
[2020-09-15] MEDS ORDERED: PHARMACY COMMUNICATION MISC SCH (08:15)
[2020-09-15] MEDS ORDERED: ENOXAPARIN SODIUM 30 MG/0.3 ML SQ SCH (09:00)
[2020-09-15] MEDS: SENNOSIDES 8.6 MG TABLET PO SCH (09:25)
[2020-09-15] MEDS: AMLODIPINE 5 MG TAB PO SCH (09:25)
[2020-09-15] MEDS: LOSARTAN 50 MG TABLET PO SCH (09:25)
[2020-09-15] MEDS: FLUOXETINE HCL 10 MG CAPSULE PO SCH (09:25)
[2020-09-15] MEDS: DOXYCYCLINE HYCLATE 100 MG TABLET PO SCH ×2 (09:25→21:26)
[2020-09-15] MEDS: ENOXAPARIN SODIUM 30 MG/0.3 ML SQ SCH (09:26)
[2020-09-15] MEDS: ACETAMINOPHEN 325 MG TAB PO PRN ×2 (10:13→16:42)
[2020-09-15] MEDS: PANTOPRAZOLE 40 MG TAB DR PO SCH (10:32)
[2020-09-15] MEDS: FAMOTIDINE 20MG TAB PO SCH (21:26)
[2020-09-15] MEDS ORDERED: IPRATROPIUM/ALBUTEROL SULFATE 3 ML SOLUTION IH PRN (22:15)
[2020-09-16 03:45] VITALS: BP 137/61
[2020-09-16 05:34] LABS: CREATININE 0.9 mg/dL (0.5-1.5); POTASSIUM 3.7 mmol/L (3.5-5.1)
[2020-09-16] MEDS: CEFEPIME HCL 1 GM VIAL IVP SCH ×2 (05:35→16:48)
[2020-09-16] MEDS: INSULIN LISPRO 100 UNIT/ML 3ML SQ SCH ×2 (06:39→16:49)
[2020-09-16] MEDS: INSULIN R PO SS1 SQ SCH ×3 (06:39→16:30)
[2020-09-16] MEDS: PANTOPRAZOLE 40 MG TAB DR PO SCH (06:47)
[2020-09-16 08:13] VITALS: BP 155/79
[2020-09-16] MEDS: LOSARTAN 50 MG TABLET PO SCH (09:07)
[2020-09-16] MEDS: FLUOXETINE HCL 10 MG CAPSULE PO SCH (09:08)
[2020-09-16] MEDS: SENNOSIDES 8.6 MG TABLET PO SCH (09:08)
[2020-09-16] MEDS: DOXYCYCLINE HYCLATE 100 MG TABLET PO SCH (09:08)
[2020-09-16] MEDS: AMLODIPINE 5 MG TAB PO SCH (09:08)
[2020-09-16] MEDS: ENOXAPARIN SODIUM 30 MG/0.3 ML SQ SCH (09:09)
[2020-09-16 11:07] VITALS: BP 127/77
[2020-09-16] MEDS: TRAMADOL HCL 50 MG TABLET PO PRN (11:25)
[2020-09-16 16:17] VITALS: BP 144/70
[2020-09-16] MEDS: ACETAMINOPHEN 325 MG TAB PO PRN (16:46)
== END 2020-09-16 19:42 | disposition home or self-care (01) | DRG 864 ==
LOC: EDH 23:38 → INTOOBSV 09-13 03:34 → OBSVTOIN 09-13 03:34 → EDHIP 09-13 03:34 → 3CH 09-13 14:59 → 3AH 09-16 17:26
PROVIDERS: ADMIT Internal Medicine; ATTEND Internal Medicine
DX: R50.9 Fever, unspecified (principal); E11.22 Type 2 diabetes mellitus with diabetic chronic kidney disease; E66.9 Obesity, unspecified; E83.42 Hypomagnesemia; E87.6 Hypokalemia; I12.9 Hypertensive chronic kidney disease with stage 1 through stage 4 chronic kidney disease, or unspecified chronic kidney disease; J45.909 Unspecified asthma, uncomplicated; K57.30 Diverticulosis of large intestine without perforation or abscess without bleeding; N18.30 Chronic kidney disease, stage 3 unspecified; K21.9 Gastro-esophageal reflux disease without esophagitis; Z20.822 Contact with and (suspected) exposure to COVID-19; Z68.30 Body mass index [BMI] 30.0-30.9, adult; Z90.711 Acquired absence of uterus with remaining cervical stump; Z82.49 Family history of ischemic heart disease and other diseases of the circulatory system; Z83.2 Family history of diseases of the blood and blood-forming organs and certain disorders involving the immune mechanism; Z83.3 Family history of diabetes mellitus; Z90.49 Acquired absence of other specified parts of digestive tract; Z82.61 Family history of arthritis; Z88.1 Allergy status to other antibiotic agents; Z91.041 Radiographic dye allergy status; Z86.16 Personal history of COVID-19; R11.2 Nausea with vomiting, unspecified
CPT/HCPCS: 36415; 71045; 74177; 80048; 80053; 81001; 82550; 82948; 83036; 83605; 83735; 83874; 83880; 84145; 84484; 85025; 85027; 85610; 85730; 86900; 86901; 87040; 87088; 87426; 87804; 87880; 93005; 94640; 94664; 96360; 96361; 96365; 96372; 96375; 96376; G0378; J0692; J0696; J1100; J1650; J3475; J7030; Q9963; Q9967; U0003

== ENCOUNTER 2020-09-26 12:08 | Emergency (ER) | payer MEDICARE ==
[~2020-09-26 12:08] MED LIST changes: -ACET-2247 PO; -APIX2.5T PO; -CETI10TA57 PO; +CETI10TA86 PO; +FLUO10CA21 PO; -FLUO10CA24 PO; +OMEP40CA13 PO; -PANT40TA55 PO
[2020-09-26 13:16] LABS: BASOPHILS % (AUTO) 0.4 % (0.0-5.0); EOSINOPHILS % (AUTO) 0.7 % (0.0-8.0); LYMPHOCYTES % (AUTO) 10.7 % (21.0-51.0); MEAN CORPUSCULAR HEMOGLOBIN 27.3 pg (27.0-33.0); MEAN CORPUSCULAR HGB CONC 33.8 g/dL (32.0-36.0); MEAN CORPUSCULAR VOLUME 80.6 fL (79-99); MONOCYTES % (AUTO) 5.3 % (3.0-13.0); NEUTROPHILS % (AUTO) 82.6 % (40.0-77.0); PLATELET COUNT (AUTO) 285 K/uL (130-400); RED BLOOD CELL COUNT(AUTO) 4.22 MIL/uL (4.00-5.50); WHITE BLOOD COUNT (AUTO) 11.5 K/uL (4.8-10.8)
[2020-09-26 13:28] LABS: CREATININE 0.9 mg/dL (0.5-1.5); INR 1.03 (0.85-1.15); PROTHROMBIN TIME 11.2 SEC (9.6-11.6)
[2020-09-26 13:29] LABS: PARTIAL THROMBOPLASTIN TIME 26.5 SEC (26.3-35.5)
[2020-09-26 13:33] LABS: BILIRUBIN,TOTAL 0.3 mg/dL (0.2-1.0); TOTAL PROTEIN, SERUM 7.9 g/dL (6.0-8.3)
[2020-09-26] MEDS ORDERED: IOHEXOL-350 75 ML VIAL IV ONE (14:04)
[2020-09-26 16:56] LABS: APPEARANCE,URINE Clear (CLEAR); BILIRUBIN,URINE Negative (NEGATIVE); COLOR,URINE Yellow (YELLOW); GLUCOSE, URINE (UA) Negative (NEGATIVE); KETONES,URINE Negative (NEGATIVE); LEUKOCYTE ESTERASE ,URINE Trace (NEGATIVE); NITRATE,URINE Negative (NEGATIVE); OCCULT BLOOD,URINE Negative (NEGATIVE); PH,URINE 5.5 (5.0-8.0); PROTEIN,URINE Negative (NEGATIVE); UROBILINOGEN,URINE 0.2 mg/dL (0.2-1.0)
[2020-09-26 17:08] LABS: BACTERIA,URINE Few /HPF (None Seen); MUCUS,URINE Few LPF (None Seen); RBC,URINE 0-1 /HPF (0-1); SQUAMOUS EPITHELIAL CELL,UR Moderate /HPF (0-2)
[2020-09-26] MEDS ORDERED: DOXYCYCLINE HYCLATE 100 MG TABLET PO ONE (17:18)
== END 2020-09-26 18:26 | disposition home or self-care (01) ==
LOC: EDH 12:08
DX: J15.9 Unspecified bacterial pneumonia (principal); R10.32 Left lower quadrant pain; Z20.822 Contact with and (suspected) exposure to COVID-19; E11.9 Type 2 diabetes mellitus without complications; J45.909 Unspecified asthma, uncomplicated; K21.9 Gastro-esophageal reflux disease without esophagitis; E78.00 Pure hypercholesterolemia, unspecified; I10 Essential (primary) hypertension; Z79.899 Other long term (current) drug therapy; Z90.49 Acquired absence of other specified parts of digestive tract; Z90.710 Acquired absence of both cervix and uterus; Z88.1 Allergy status to other antibiotic agents; Z88.5 Allergy status to narcotic agent
CPT/HCPCS: 36415; 71045; 71275; 74176; 80053; 81001; 82150; 82550; 82728; 83605; 83690; 84484; 85025; 85378; 85610; 85730; 86140; 87040 ×2; 87426; 93005; 99285; Q9967; U0003

== ENCOUNTER 2020-09-27 16:59 | Inpatient (IN) | payer MEDICARE ==
[~2020-09-27] VITALS: Ht 154.9 cm; Wt 68.9 kg
[~2020-09-27 16:59] MED LIST changes: -CETI10TA86 PO; +CETI10TA87 PO; -OMEP40CA13 PO; +OMEP40CA21 PO
[2020-09-27 17:56] LABS: BASOPHILS % (AUTO) 0.4 % (0.0-5.0); EOSINOPHILS % (AUTO) 1.2 % (0.0-8.0); HEMATOCRIT 34.2 % (36-48); LYMPHOCYTES % (AUTO) 25.5 % (21.0-51.0); MEAN CORPUSCULAR HEMOGLOBIN 27.1 pg (27.0-33.0); MEAN CORPUSCULAR HGB CONC 33.9 g/dL (32.0-36.0); MEAN CORPUSCULAR VOLUME 79.9 fL (79-99); MONOCYTES % (AUTO) 8.5 % (3.0-13.0); PLATELET COUNT (AUTO) 282 K/uL (130-400); RED BLOOD CELL COUNT(AUTO) 4.28 MIL/uL (4.00-5.50); RED CELL DISTRIBUTION WIDTH 14.2 % (11.0-15.5); WHITE BLOOD COUNT (AUTO) 9.6 K/uL (4.8-10.8)
[2020-09-27 18:18] LABS: APPEARANCE,URINE Clear (CLEAR); BILIRUBIN,URINE Negative (NEGATIVE); COLOR,URINE Yellow (YELLOW); GLUCOSE, URINE (UA) Negative (NEGATIVE); KETONES,URINE Negative (NEGATIVE); LEUKOCYTE ESTERASE ,URINE Small (NEGATIVE); NITRATE,URINE Negative (NEGATIVE); OCCULT BLOOD,URINE Negative (NEGATIVE); PH,URINE 5.5 (5.0-8.0); PROTEIN,URINE Trace mg/dL (NEGATIVE); UROBILINOGEN,URINE 0.2 mg/dL (0.2-1.0)
[2020-09-27 18:23] LABS: CREATININE 1.1 mg/dL (0.5-1.5); POTASSIUM 3.7 mmol/L (3.5-5.1)
[2020-09-27 18:28] LABS: BILIRUBIN,TOTAL 0.5 mg/dL (0.2-1.0)
[2020-09-27 18:37] LABS: BACTERIA,URINE Few /HPF (None Seen); MUCUS,URINE Few LPF (None Seen); SQUAMOUS EPITHELIAL CELL,UR Moderate /HPF (0-2); TRANSITIONAL EPI CELLS,URINE Few /HPF (None Seen)
[2020-09-27] MEDS ORDERED: ONDANSETRON 4MG INJ ONE (19:33)
[2020-09-27] MEDS ORDERED: MORPHINE 4 MG SYG ONE (19:34)
[2020-09-27] MEDS ORDERED: ZOSYN 3.375GM+NS 50ML 50 ML IV ONE (20:37)
[2020-09-27] MEDS ORDERED: ACETAMINOPHEN 650 MG SUPPOSITORY RC PRN (20:45)
[2020-09-27] MEDS: 0.9%NACL 1000ML 1,000 ML IV SCH (20:45)
[2020-09-27] MEDS ORDERED: VANCOMYCIN 1G 1.5 GM in 0.9% NACL 250ML 250 ML IV ONE (21:00)
[2020-09-27] MEDS: FAMOTIDINE 20MG VIAL IV SCH (21:00)
[2020-09-27] MEDS: ZOSYN 3.375GM+NS 50ML 50 ML IV SCH (22:00)
[2020-09-28 00:20] VITALS: BP 152/71
[2020-09-28] MEDS: HYDROMORPHONE 0.5 MG SYG (0.5MG/0.5ML) IVP PRN ×4 (00:50→22:36)
[2020-09-28 04:13] VITALS: BP 112/51
[2020-09-28] MEDS: ZOSYN 3.375GM+NS 50ML 50 ML IV SCH ×3 (06:21→22:54)
[2020-09-28 07:09] LABS: HEMATOCRIT 30.1 % (36-48); MEAN CORPUSCULAR HEMOGLOBIN 27.1 pg (27.0-33.0); MEAN CORPUSCULAR HGB CONC 33.2 g/dL (32.0-36.0); MEAN CORPUSCULAR VOLUME 81.6 fL (79-99); RED BLOOD CELL COUNT(AUTO) 3.69 MIL/uL (4.00-5.50); RED CELL DISTRIBUTION WIDTH 14.1 % (11.0-15.5); WHITE BLOOD COUNT (AUTO) 7.8 K/uL (4.8-10.8)
[2020-09-28 07:33] LABS: MAGNESIUM 1.6 mg/dL (1.80-2.40); POTASSIUM 3.9 mmol/L (3.5-5.1)
[2020-09-28] MEDS: VANCOMYCIN 500MG+NS 100ML 100 ML IV SCH ×2 (09:36→21:52)
[2020-09-28 09:52] VITALS: BP 133/62
[2020-09-28 12:00] VITALS: BP 140/63
[2020-09-28 16:40] VITALS: BP 151/67
[2020-09-28 20:24] VITALS: BP 148/67
[2020-09-28] MEDS: FAMOTIDINE 20MG VIAL IV SCH (21:52)
[2020-09-29 00:24] VITALS: BP 153/74
[2020-09-29] MEDS: HYDROMORPHONE 0.5 MG SYG (0.5MG/0.5ML) IVP PRN ×2 (02:02→08:48)
[2020-09-29] MEDS: ONDANSETRON 4MG INJ IVP PRN ×2 (03:41→08:47)
[2020-09-29 04:24] VITALS: BP 168/71
[2020-09-29] MEDS: 0.9%NACL 1000ML 1,000 ML IV SCH ×2 (05:34→12:45)
[2020-09-29] MEDS: ZOSYN 3.375GM+NS 50ML 50 ML IV SCH ×3 (05:34→20:59)
[2020-09-29] MEDS: VANCOMYCIN 500MG+NS 100ML 100 ML IV SCH ×2 (08:51→21:00)
[2020-09-29 08:54] VITALS: BP 149/65
[2020-09-29] MEDS: ACETAMINOPHEN 325 MG TAB PO PRN ×3 (12:20→22:01)
[2020-09-29 13:33] VITALS: BP 144/67
[2020-09-29] MEDS ORDERED: VANCOMYCIN 1G/250ML KIT 250 ML IV SCH (14:00)
[2020-09-29 16:27] VITALS: BP 155/71
[2020-09-29 20:01] VITALS: BP 150/72
[2020-09-29] MEDS: FAMOTIDINE 20MG VIAL IV SCH (20:59)
[2020-09-30 00:01] VITALS: BP 140/73
[2020-09-30] MEDS: 0.9%NACL 1000ML 1,000 ML IV SCH (01:53)
[2020-09-30 03:51] VITALS: BP 143/67
[2020-09-30] MEDS: ZOSYN 3.375GM+NS 50ML 50 ML IV SCH ×2 (05:42→14:28)
[2020-09-30 05:47] LABS: MEAN CORPUSCULAR HGB CONC 33.8 g/dL (32.0-36.0); RED CELL DISTRIBUTION WIDTH 13.4 % (11.0-15.5); WHITE BLOOD COUNT (AUTO) 6.2 K/uL (4.8-10.8)
[2020-09-30] MEDS: ACETAMINOPHEN 325 MG TAB PO PRN ×2 (05:48→13:02)
[2020-09-30 05:52] LABS: CREATININE 0.9 mg/dL (0.5-1.5); POTASSIUM 3.8 mmol/L (3.5-5.1)
[2020-09-30 07:32] VITALS: BP 146/73
[2020-09-30] MEDS: VANCOMYCIN 500MG+NS 100ML 100 ML IV SCH (09:20)
[2020-09-30 11:25] VITALS: BP 149/69
== END 2020-09-30 18:15 | disposition home or self-care (01) | DRG 392 ==
LOC: EDH 16:59 → EDHIP 19:10 → 3BH 23:43
PROVIDERS: ADMIT Family Medicine; ATTEND Family Medicine
DX: K57.32 Diverticulitis of large intestine without perforation or abscess without bleeding (principal); K52.9 Noninfective gastroenteritis and colitis, unspecified; E11.9 Type 2 diabetes mellitus without complications; I10 Essential (primary) hypertension; E78.5 Hyperlipidemia, unspecified; Z88.1 Allergy status to other antibiotic agents; Z79.4 Long term (current) use of insulin; Z90.711 Acquired absence of uterus with remaining cervical stump; Z90.49 Acquired absence of other specified parts of digestive tract; K21.9 Gastro-esophageal reflux disease without esophagitis; E27.8 Other specified disorders of adrenal gland
CPT/HCPCS: 36415; 71045; 71275; 74176; 80048; 80053; 80202; 81001; 82150; 82550; 82728; 82948; 83605; 83690; 83735; 84484; 85025; 85027; 85378; 85610; 85730; 86140; 87040; 87426; 93005; G0378; J1170; J2270; J2405; J2543; J3370; J3490; J7030; J7050; Q9967; U0003

== ENCOUNTER 2020-11-13 10:33 | Day surgery (SDC) | payer MEDICARE ==
[2020-11-06 10:44] LABS: BASOPHILS % (AUTO) 0.7 % (0.0-5.0); EOSINOPHILS % (AUTO) 4.9 % (0.0-8.0); HEMATOCRIT 37.3 % (36-48); LYMPHOCYTES % (AUTO) 29.6 % (21.0-51.0); MEAN CORPUSCULAR HEMOGLOBIN 26.7 pg (27.0-33.0); MEAN CORPUSCULAR HGB CONC 33.2 g/dL (32.0-36.0); MEAN CORPUSCULAR VOLUME 80.4 fL (79-99); MONOCYTES % (AUTO) 6.8 % (3.0-13.0); NEUTROPHILS % (AUTO) 57.7 % (40.0-77.0); PLATELET COUNT (AUTO) 274 K/uL (130-400); RED BLOOD CELL COUNT(AUTO) 4.64 MIL/uL (4.00-5.50); RED CELL DISTRIBUTION WIDTH 14.1 % (11.0-15.5); WHITE BLOOD COUNT (AUTO) 7.5 K/uL (4.8-10.8)
[2020-11-06 11:00] LABS: ALBUMIN 4.1 g/dL (3.5-5.0); BILIRUBIN,TOTAL 0.3 mg/dL (0.2-1.0); POTASSIUM 4.7 mmol/L (3.5-5.1); TOTAL PROTEIN, SERUM 8.4 g/dL (6.0-8.3)
[2020-11-13] VITALS (16 sets, daily range): BP systolic 99–164; BP diastolic 41–80
[~2020-11-13] VITALS: Ht 154.9 cm; Wt 67.1 kg
[~2020-11-13 10:33] MED LIST changes: +CEFAZOLIN SODIUM 1 GM VIAL IVP SCH; +CETI10TA86 PO; -CETI10TA87 PO; +OMEP40CA13 PO; -OMEP40CA21 PO; +SODIUM CHLORIDE 0.9% 1000ML 1,000 ML IV SCH
[2020-11-13] MEDS ORDERED: LIDOCAINE HCL-MPF 2% 5ML VIAL ONE (12:00)
[2020-11-13] MEDS ORDERED: PROPOFOL 10 MG/ML 20ML VIAL IV ONE ×4 (12:00→13:54)
[2020-11-13] MEDS ORDERED: MEPERIDINE-PF 25 MG/ML SYG ONE (14:19)
[2020-11-13] MEDS ORDERED: ONDANSETRON HCL 4 MG/2 ML VIAL ONE ×2 (14:19→14:52)
[2020-11-13] MEDS ORDERED: SIMETHICONE 40 MG/0.6 ML ML ONE (14:52)
[2020-11-13] MEDS ORDERED: SIMETHICONE 80 MG TAB.CHEW PO SCH (15:00)
[2020-11-13] MEDS ORDERED: METOCLOPRAMIDE 10 MG/2 ML VIAL ONE (16:23)
[2020-11-13] MEDS: ONDANSETRON HCL 4 MG/2 ML VIAL IVP SCH ×2 (16:51→16:52)
== END 2020-11-13 16:50 | disposition home or self-care (01) ==
LOC: DAH 10:33 → ENDO 10:33
PROVIDERS: ATTEND Student in an Organized Health Care Education/Training Program
DX: K57.32 Diverticulitis of large intestine without perforation or abscess without bleeding (principal); Z20.822 Contact with and (suspected) exposure to COVID-19; K63.5 Polyp of colon; J45.909 Unspecified asthma, uncomplicated; I10 Essential (primary) hypertension; K21.9 Gastro-esophageal reflux disease without esophagitis; M19.90 Unspecified osteoarthritis, unspecified site; E11.9 Type 2 diabetes mellitus without complications; E78.5 Hyperlipidemia, unspecified; Z88.0 Allergy status to penicillin; Z88.6 Allergy status to analgesic agent; Z88.8 Allergy status to other drugs, medicaments and biological substances; Z90.710 Acquired absence of both cervix and uterus; Z98.890 Other specified postprocedural states; Z90.49 Acquired absence of other specified parts of digestive tract
CPT/HCPCS: 36415; 45380; 45385; 71045; 74018; 80053; 82948 ×2; 85025; 93005; A4215; A4221; A4222; A4223; A4606; A4620; A4663; C9803; J2175; J2405 ×2; J2704 ×4; J2765; J3490; U0003; 45378

== ENCOUNTER 2020-11-16 10:34 | Emergency (ER) | payer MEDICARE ==
[~2020-11-16 10:34] MED LIST changes: -CEFAZOLIN SODIUM 1 GM VIAL IVP SCH; -SODIUM CHLORIDE 0.9% 1000ML 1,000 ML IV SCH
[2020-11-16] MEDS ORDERED: IPRATROPIUM/ALBUTEROL SULFATE 3 ML SOLUTION IH ONE (10:41)
[2020-11-16] MEDS ORDERED: METHYLPREDNISOLONE SOD SUCC 125MG/2ML VIAL ONE (10:49)
[2020-11-16 11:11] LABS: BASOPHILS % (AUTO) 0.4 % (0.0-5.0); EOSINOPHILS % (AUTO) 1.4 % (0.0-8.0); HEMATOCRIT 35.2 % (36-48); LYMPHOCYTES % (AUTO) 18.8 % (21.0-51.0); MEAN CORPUSCULAR HEMOGLOBIN 27.1 pg (27.0-33.0); MEAN CORPUSCULAR HGB CONC 33.5 g/dL (32.0-36.0); MEAN CORPUSCULAR VOLUME 80.7 fL (79-99); MONOCYTES % (AUTO) 6.2 % (3.0-13.0); NEUTROPHILS % (AUTO) 72.7 % (40.0-77.0); PLATELET COUNT (AUTO) 259 K/uL (130-400); RED BLOOD CELL COUNT(AUTO) 4.36 MIL/uL (4.00-5.50); WHITE BLOOD COUNT (AUTO) 13.2 K/uL (4.8-10.8)
[2020-11-16 11:15] LABS: CREATININE 1.5 mg/dL (0.5-1.5); POTASSIUM 3.9 mmol/L (3.5-5.1)
[2020-11-16 11:18] LABS: PROTHROMBIN TIME 10.9 SEC (9.6-11.6)
[2020-11-16 11:20] LABS: ALBUMIN 3.8 g/dL (3.5-5.0); BILIRUBIN,TOTAL 0.6 mg/dL (0.2-1.0); PARTIAL THROMBOPLASTIN TIME 27.6 SEC (26.3-35.5); TOTAL PROTEIN, SERUM 8.7 g/dL (6.0-8.3)
== END 2020-11-16 14:37 | disposition home or self-care (01) ==
LOC: EDH 10:34
DX: J45.901 Unspecified asthma with (acute) exacerbation (principal); Z20.822 Contact with and (suspected) exposure to COVID-19; E11.9 Type 2 diabetes mellitus without complications; E80.0 Hereditary erythropoietic porphyria; I10 Essential (primary) hypertension; K21.9 Gastro-esophageal reflux disease without esophagitis; Z90.49 Acquired absence of other specified parts of digestive tract; Z90.710 Acquired absence of both cervix and uterus; Z88.2 Allergy status to sulfonamides; Z88.6 Allergy status to analgesic agent
CPT/HCPCS: 36415; 71045; 80053; 82550; 84484; 85025; 85610; 85730; 87426; 93005; 94640; 96374; 99285; J2930; U0003

== ENCOUNTER 2021-07-12 16:33 | Emergency (ER) | payer MEDICARE, OTHER ==
[~2021-07-12] VITALS: Ht 154.9 cm; Wt 68.0 kg
[~2021-07-12 16:33] MED LIST changes: -CETI10TA86 PO; +CETI10TA87 PO; -OMEP40CA13 PO; +OMEP40CA21 PO
[2021-07-12 16:35] VITALS: BP 152/61
[2021-07-12] MEDS ORDERED: HYDROCODONE/ACETAMINOPHEN 10/325 MG TAB PO ONE (17:30)
[2021-07-12 17:44] LABS: CRP QUANTITATIVE 8.8 mg/L (0.00-9.0)
[2021-07-12] MEDS ORDERED: ACET-2247 PO (18:33)
== END 2021-07-12 18:51 | disposition home or self-care (01) ==
LOC: EDH 16:33
DX: S86.912A Strain of unspecified muscle(s) and tendon(s) at lower leg level, left leg, initial encounter (principal); E11.9 Type 2 diabetes mellitus without complications; E78.00 Pure hypercholesterolemia, unspecified; I10 Essential (primary) hypertension; Z88.1 Allergy status to other antibiotic agents; Z88.5 Allergy status to narcotic agent; Z79.84 Long term (current) use of oral hypoglycemic drugs; Z79.899 Other long term (current) drug therapy; Z90.49 Acquired absence of other specified parts of digestive tract; X58.XXXA Exposure to other specified factors, initial encounter; Y93.89 Activity, other specified; Y92.89 Other specified places as the place of occurrence of the external cause; Y99.8 Other external cause status
CPT/HCPCS: 36415; 73562; 84550; 86140

== ENCOUNTER 2021-07-18 17:55 | Emergency (ER) | payer MEDICARE ==
[~2021-07-18] VITALS: Ht 154.9 cm; Wt 68.0 kg
[~2021-07-18 17:55] MED LIST changes: +ACET-2247 PO
[2021-07-18 17:56] VITALS: BP 134/70
== END 2021-07-18 20:10 | disposition home or self-care (01) ==
LOC: EDH 17:55
DX: M25.462 Effusion, left knee (principal); M25.562 Pain in left knee; I10 Essential (primary) hypertension; E78.00 Pure hypercholesterolemia, unspecified; E11.9 Type 2 diabetes mellitus without complications; Z90.49 Acquired absence of other specified parts of digestive tract; Z90.710 Acquired absence of both cervix and uterus; Z88.1 Allergy status to other antibiotic agents; Z88.5 Allergy status to narcotic agent; Z79.899 Other long term (current) drug therapy
CPT/HCPCS: 93971

== ENCOUNTER 2021-07-24 15:49 | Emergency (ER) | payer MEDICARE ==
[~2021-07-24] VITALS: Ht 154.9 cm; Wt 68.0 kg
[2021-07-24 15:52] VITALS: BP 172/74
[2021-07-24] MEDS ORDERED: MORPHINE 4 MG SYG IM ONE (16:30)
[2021-07-24 16:45] LABS: BASOPHILS % (AUTO) 0.7 % (0.0-5.0); EOSINOPHILS % (AUTO) 1.8 % (0.0-8.0); HEMATOCRIT 36.9 % (36-48); LYMPHOCYTES % (AUTO) 28.2 % (21.0-51.0); MEAN CORPUSCULAR HEMOGLOBIN 27.1 pg (27.0-33.0); MEAN CORPUSCULAR HGB CONC 33.1 g/dL (32.0-36.0); MEAN CORPUSCULAR VOLUME 81.8 fL (79-99); MONOCYTES % (AUTO) 6.4 % (3.0-13.0); NEUTROPHILS % (AUTO) 62.6 % (40.0-77.0); PLATELET COUNT (AUTO) 325 K/uL (130-400); RED BLOOD CELL COUNT(AUTO) 4.51 MIL/uL (4.00-5.50); RED CELL DISTRIBUTION WIDTH 13.5 % (11.0-15.5); WHITE BLOOD COUNT (AUTO) 9.6 K/uL (4.8-10.8)
[2021-07-24 17:17] LABS: CARBON DIOXIDE 24 mmol/L (21-32); CHLORIDE 99 mmol/L (101-111); CREATININE 1.2 mg/dL (0.5-1.5); GLOMERULAR FILTR. RATE CALC 47 mL/min (>60); GLUCOSE,RANDOM 232 mg/dL (70-105); POTASSIUM 3.9 mmol/L (3.5-5.1); SODIUM SERUM 133 mmol/L (136-145); UREA NITROGEN, BLOOD 15 mg/dL (7-18)
[2021-07-24 17:22] LABS: ALANINE AMINOTRANSFERASE 27 U/L (12-78); ASPARTATE AMINOTRANSFERASE 23 U/L (10-37); BILIRUBIN,TOTAL 0.2 mg/dL (0.2-1.0); CREATINE KINASE, TOTAL 94 U/L (21-232); TOTAL PROTEIN, SERUM 8.2 g/dL (6.0-8.3); URIC ACID 5.2 mg/dL (2.6-7.2)
[2021-07-24 17:23] LABS: CRP QUANTITATIVE < 2.00 mg/L (0.00-9.0)
[2021-07-24 18:00] LABS: ERYTHROCYTE SEDIMENTATION RATE 49 MM/HR (0-30)
[2021-07-24] MEDS ORDERED: DEXAMETHASONE SOD PHOSPHATE 4 MG/ML 1ML VIAL IM ONE (19:00)
[2021-07-24] MEDS ORDERED: DICL1KIT20 TP (19:15)
== END 2021-07-24 19:30 | disposition home or self-care (01) ==
LOC: EDH 15:49
DX: M25.562 Pain in left knee (principal); M25.462 Effusion, left knee; I10 Essential (primary) hypertension; E11.9 Type 2 diabetes mellitus without complications; Z88.1 Allergy status to other antibiotic agents; Z88.5 Allergy status to narcotic agent; Z79.899 Other long term (current) drug therapy
CPT/HCPCS: 36415; 71046; 80053; 82550; 84550; 85025; 85651; 86140; 96372 ×2; 99284; J1100; J2270

== ENCOUNTER 2022-06-13 11:31 | Emergency (ER) | payer MEDICARE ==
[~2022-06-13] VITALS: Ht 154.9 cm; Wt 66.7 kg
[~2022-06-13 11:31] MED LIST changes: +DICL1KIT20 TP
[2022-06-13 12:58] VITALS: BP 158/81
[2022-06-13] MEDS ORDERED: IPRATROPIUM/ALBUTEROL SULFATE 3 ML SOLUTION IH ONE (13:30)
[2022-06-13] MEDS ORDERED: D-ME118S47 PO (13:38)
[2022-06-13] MEDS ORDERED: AZIT250T9 PO (13:38)
== END 2022-06-13 13:53 | disposition home or self-care (01) ==
LOC: EDH 11:31
DX: J06.9 Acute upper respiratory infection, unspecified (principal); Z20.822 Contact with and (suspected) exposure to COVID-19; J45.909 Unspecified asthma, uncomplicated; E11.9 Type 2 diabetes mellitus without complications; I10 Essential (primary) hypertension; Z88.1 Allergy status to other antibiotic agents; Z88.5 Allergy status to narcotic agent; Z79.899 Other long term (current) drug therapy; Z79.84 Long term (current) use of oral hypoglycemic drugs; Z90.89 Acquired absence of other organs; Z90.49 Acquired absence of other specified parts of digestive tract; Z98.890 Other specified postprocedural states
CPT/HCPCS: 99283; 71045; 87635; 87804 ×2; 94640; C9803

== ENCOUNTER 2022-07-28 18:09 | Emergency (ER) | payer MEDICARE ==
[~2022-07-28] VITALS: Ht 152.4 cm; Wt 68.0 kg
[~2022-07-28 18:09] MED LIST changes: +AZIT250T9 PO; +D-ME118S47 PO
[2022-07-28 18:58] LABS: APPEARANCE,URINE CLOUDY (CLEAR); BILIRUBIN,URINE NEGATIVE (NEGATIVE); COLOR,URINE BROWN (YELLOW); GLUCOSE, URINE (UA) NEGATIVE (NEGATIVE); KETONES,URINE NEGATIVE (NEGATIVE); LEUKOCYTE ESTERASE ,URINE 75 Leu/uL (NEGATIVE); NITRATE,URINE NEGATIVE (NEGATIVE); OCCULT BLOOD,URINE LARGE (NEGATIVE); PH,URINE 5.5 (5.0-8.0); PROTEIN,URINE 20 mg/dL (NEGATIVE); UROBILINOGEN,URINE 0.2 mg/dL (0.2-1.0)
[2022-07-28 19:09] LABS: BACTERIA,URINE FEW /HPF (None Seen); MUCUS,URINE RARE LPF (None Seen); RBC,URINE TNTC /HPF (0-1); SQUAMOUS EPITHELIAL CELL,UR RARE /HPF (0-2)
[2022-07-28 19:13] LABS: BASOPHILS % (AUTO) 0.8 % (0.0-5.0); EOSINOPHILS % (AUTO) 2.3 % (0.0-8.0); HEMATOCRIT 34.2 % (36-48); MEAN CORPUSCULAR HEMOGLOBIN 26.9 pg (27.0-33.0); MEAN CORPUSCULAR HGB CONC 33.9 g/dL (32.0-36.0); MEAN CORPUSCULAR VOLUME 79.4 fL (79-99); MONOCYTES % (AUTO) 8.1 % (3.0-13.0); NEUTROPHILS % (AUTO) 59.4 % (40.0-77.0); PLATELET COUNT (AUTO) 253 K/uL (130-400); RED BLOOD CELL COUNT(AUTO) 4.31 MIL/uL (4.00-5.50); RED CELL DISTRIBUTION WIDTH 13.5 % (11.0-15.5); WHITE BLOOD COUNT (AUTO) 7.8 K/uL (4.8-10.8)
[2022-07-28 19:20] LABS: CREATININE 1.3 mg/dL (0.5-1.5); POTASSIUM 3.6 mmol/L (3.5-5.1)
[2022-07-28 19:25] LABS: TOTAL PROTEIN, SERUM 7.8 g/dL (6.0-8.3)
[2022-07-28] MEDS ORDERED: PHARMACY COMMUNICATION MISC SCH (21:30)
[2022-07-28] MEDS ORDERED: LIDOCAINE HCL MISC SCH (22:00)
[2022-07-28] MEDS ORDERED: [UNRECOGNIZED DRUG - OTHER] MISC SCH (22:00)
[2022-07-28 22:55] VITALS: BP 167/69
[2022-07-28] MEDS ORDERED: CLONIDINE HCL 0.1 MG TABLET PO ONE (23:00)
== END 2022-07-28 23:12 | disposition home or self-care (01) ==
LOC: EDH 18:09
DX: K57.30 Diverticulosis of large intestine without perforation or abscess without bleeding (principal); N23 Unspecified renal colic; I10 Essential (primary) hypertension; E11.9 Type 2 diabetes mellitus without complications; J45.909 Unspecified asthma, uncomplicated; N83.202 Unspecified ovarian cyst, left side; Z88.1 Allergy status to other antibiotic agents; Z88.5 Allergy status to narcotic agent; Z90.49 Acquired absence of other specified parts of digestive tract; Z79.899 Other long term (current) drug therapy; Z79.84 Long term (current) use of oral hypoglycemic drugs; Z90.710 Acquired absence of both cervix and uterus; Z90.89 Acquired absence of other organs
CPT/HCPCS: 99284; 74176; 96374; 80053; 85025; 87088; 81001; 36415; J3490

== ENCOUNTER 2023-06-08 18:25 | Emergency (ER) | payer MEDICARE ==
[~2023-06-08] VITALS: Ht 154.9 cm; Wt 71.7 kg
[~2023-06-08 18:25] MED LIST changes: +BROM118S48 PO; -D-ME118S47 PO
[2023-06-08 19:20] LABS: RAPID GROUP A STREP negative (NEGATIVE)
[2023-06-08 19:22] LABS: SARS-CoV-2, RNA, NAAT NEGATIVE SARS CoV-2 (NEGATIVE)
[2023-06-08 19:26] LABS: INFLUENZA TYPE A Negative For Type A (NEGATIVE); INFLUENZA TYPE B Negative For Type B (NEGATIVE)
[2023-06-08] MEDS ORDERED: IPRA3AMP24 IH (21:58)
[2023-06-08] MEDS ORDERED: AZIT250T9 PO (21:58)
[2023-06-08] MEDS ORDERED: BENZ200C53 PO (21:58)
[2023-06-08] MEDS ORDERED: BROM118S48 PO (21:58)
[2023-06-08] MEDS ORDERED: ACET-66 PO (21:58)
[2023-06-08 22:00] VITALS: BP 132/74; PULSE 88; RESP 18; O2SAT 99
[2023-06-08] MEDS ORDERED: BENZONATATE 100 MG CAPSULE PO ONE (22:00)
[2023-06-08] MEDS ORDERED: DEXAMETHASONE SOD PHOSPHATE 4 MG/ML 1ML VIAL IM ONE (22:00)
[2023-06-08] MEDS ORDERED: AZITHROMYCIN 250 MG TABLET PO ONE (22:00)
== END 2023-06-08 23:15 | disposition home or self-care (01) ==
LOC: EDH 18:25
DX: J01.90 Acute sinusitis, unspecified (principal); E11.9 Type 2 diabetes mellitus without complications; I10 Essential (primary) hypertension; E78.5 Hyperlipidemia, unspecified; J45.909 Unspecified asthma, uncomplicated; Z79.51 Long term (current) use of inhaled steroids; Z79.84 Long term (current) use of oral hypoglycemic drugs; Z79.899 Other long term (current) drug therapy; Z88.1 Allergy status to other antibiotic agents; Z88.5 Allergy status to narcotic agent; Z90.49 Acquired absence of other specified parts of digestive tract; Z20.822 Contact with and (suspected) exposure to COVID-19
CPT/HCPCS: 99284; 71045; 87635; 87880; 87804 ×2; 96372; J1100; C9803

== ENCOUNTER 2023-07-04 16:45 | Inpatient (IN) | payer MEDICARE ==
[~2023-07-04] VITALS: Ht 157.5 cm; Wt 65.8 kg
[~2023-07-04 16:45] MED LIST changes: +ACET-66 PO; +BENZ200C53 PO; +IPRA3AMP24 IH
[2023-07-04 17:46] LABS: ABG BASE EXCESS -4.4 mmol/L (-2.0-3.0); ABG HCO3 18.9 mmol/L (21.0-28.0); ABG OXYGEN SATURATION 96.9 % (95.0-99.0); ABG PCO2 30 mmHg (32-45); ABG PH 7.412 (7.35-7.450); PO2, ARTERIAL BG 87.8 mmHg (83.0-108.0); VENT MODE, BG RA (ROOM AIR)
[2023-07-04] MEDS ORDERED: SOLU-MEDROL 125MG VIAL IVP ONE (18:00)
[2023-07-04] MEDS ORDERED: IPRATROPIUM/ALBUTEROL SULFATE 3 ML SOLUTION IH ONE ×2 (18:00)
[2023-07-04 18:07] LABS: BASOPHILS # (AUTO) 0.07 K/uL (0.00-0.20); BASOPHILS % (AUTO) 0.6 % (0.0-5.0); EOSINOPHILS % (AUTO) 0.8 % (0.0-8.0); HEMATOCRIT 35.9 % (36-48); IMMATURE GRANULOCYTE ABSOLUTE 0.06 K/uL (0-1); LYMPHOCYTES % (AUTO) 16.9 % (21.0-51.0); MEAN CORPUSCULAR HEMOGLOBIN 27.6 pg (27.0-33.0); MEAN CORPUSCULAR HGB CONC 34.3 g/dL (32.0-36.0); MEAN CORPUSCULAR VOLUME 80.7 fL (79-99); MONOCYTES # (AUTO) 0.9 K/uL (0.1-1.0); MONOCYTES % (AUTO) 7.6 % (3.0-13.0); NEUTROPHILS # (AUTO) 8.9 K/uL (1.8-7.7); NEUTROPHILS % (AUTO) 73.6 % (40.0-77.0); PLATELET COUNT (AUTO) 233 K/uL (130-400); RED BLOOD CELL COUNT(AUTO) 4.45 MIL/uL (4.00-5.50); RED CELL DISTRIBUTION WIDTH 13.6 % (11.0-15.5)
[2023-07-04 18:24] LABS: CREATININE 1.1 mg/dL (0.5-1.5); POTASSIUM 3.8 mmol/L (3.5-5.1)
[2023-07-04 18:29] VITALS: PULSE 111; RESP 16
[2023-07-04] MEDS ORDERED: ONDANSETRON 4MG INJ IVP PRN (18:30)
[2023-07-04] MEDS: CEFTRIAXONE 1G VIAL IVPB SCH (18:46)
[2023-07-04] MEDS: DOXYCYCLINE HYCLATE 100 MG TABLET PO SCH (20:38)
[2023-07-04] MEDS: ACETAMINOPHEN 325 MG TAB PO PRN (21:43)
[2023-07-04 23:18] VITALS: PULSE 99; RESP 16
[2023-07-04] MEDS: IPRATROPIUM/ALBUTEROL SULFATE 3 ML SOLUTION IH SCH (23:18)
[2023-07-05] VITALS (7 sets, daily range): BP systolic 153–161; BP diastolic 68–86; PULSE 76–99; RESP 18–19
[2023-07-05] MEDS: ACETAMINOPHEN 325 MG TAB PO PRN ×3 (02:55→21:37)
[2023-07-05] MEDS: IPRATROPIUM/ALBUTEROL SULFATE 3 ML SOLUTION IH SCH ×3 (06:31→19:43)
[2023-07-05 07:11] LABS: BASOPHILS # (AUTO) 0.01 K/uL (0.00-0.20); BASOPHILS % (AUTO) 0.1 % (0.0-5.0); HEMATOCRIT 30.6 % (36-48); IMMATURE GRANULOCYTE ABSOLUTE 0.07 K/uL (0-1); LYMPHOCYTES # (AUTO) 1.1 K/uL (1.0-4.8); LYMPHOCYTES % (AUTO) 10.2 % (21.0-51.0); MEAN CORPUSCULAR HEMOGLOBIN 27.5 pg (27.0-33.0); MEAN CORPUSCULAR HGB CONC 34.6 g/dL (32.0-36.0); MEAN CORPUSCULAR VOLUME 79.3 fL (79-99); MONOCYTES # (AUTO) 0.2 K/uL (0.1-1.0); MONOCYTES % (AUTO) 1.7 % (3.0-13.0); NEUTROPHILS # (AUTO) 9.6 K/uL (1.8-7.7); NEUTROPHILS % (AUTO) 87.4 % (40.0-77.0); PLATELET COUNT (AUTO) 246 K/uL (130-400); RED BLOOD CELL COUNT(AUTO) 3.86 MIL/uL (4.00-5.50); WHITE BLOOD COUNT (AUTO) 10.9 K/uL (4.8-10.8)
[2023-07-05 07:21] LABS: HEMOGLOBIN A1C 8.5 % (4.0-6.0)
[2023-07-05 07:46] LABS: CREATININE 1.3 mg/dL (0.5-1.5); MAGNESIUM 1.9 mg/dL (1.80-2.40)
[2023-07-05] MEDS ORDERED: INSULIN HUMULIN R 100 UNIT/ML 3ML ONE (08:27)
[2023-07-05] MEDS: DOXYCYCLINE HYCLATE 100 MG TABLET PO SCH ×2 (08:31→21:37)
[2023-07-05] MEDS: ENOXAPARIN SODIUM 30 MG/0.3 ML SQ SCH (08:32)
[2023-07-05] MEDS ORDERED: IPRATROPIUM/ALBUTEROL SULFATE 3 ML SOLUTION IH ONE (09:30)
[2023-07-05] MEDS: INSULIN HUMULIN R 100 UNIT/ML 3ML SQ SCH ×3 (11:30→22:44)
[2023-07-05] MEDS ORDERED: ROSU5TAB12 PO (14:16)
[2023-07-05] MEDS ORDERED: FOLI0.8T22 PO (14:16)
[2023-07-05] MEDS: MAG/ALUM/SIMETH 30 ML UDCUP PO PRN ×2 (14:22→21:40)
[2023-07-05] MEDS: CEFTRIAXONE 1G VIAL IVPB SCH (18:54)
[2023-07-05] MEDS: SOLU-MEDROL 40MG VIAL IVP SCH (18:54)
[2023-07-06] VITALS (12 sets, daily range): BP systolic 139–161; BP diastolic 66–75; PULSE 71–92; RESP 17–19; O2SAT 97
[2023-07-06] MEDS: IPRATROPIUM/ALBUTEROL SULFATE 3 ML SOLUTION IH SCH ×5 (00:07→23:03)
[2023-07-06] MEDS: INSULIN HUMULIN R 100 UNIT/ML 3ML SQ SCH ×3 (06:17→16:30)
[2023-07-06] MEDS ORDERED: NON-FORMULARY MEDICATION 1 EACH (Rosuvastatin Calcium 5 MG) PO SCH (09:00)
[2023-07-06] MEDS ORDERED: NON-FORMULARY MEDICATION 1 EACH (Folic Acid/Vitamin B Comp W-C (Rena-Vite Tablet) 0.8 MG) PO SCH (09:00)
[2023-07-06] MEDS: FLUOXETINE HCL 10 MG CAPSULE PO SCH (09:00)
[2023-07-06] MEDS ORDERED: FLUO10CA21 PO (09:00)
[2023-07-06] MEDS: AMLODIPINE 5 MG TAB PO SCH (09:00)
[2023-07-06] MEDS ORDERED: NON-FORMULARY MEDICATION 1 EACH (Omeprazole 40 MG) PO SCH (09:00)
[2023-07-06] MEDS ORDERED: NON-FORMULARY MEDICATION 1 EACH (Sitagliptin Phosphate (Januvia) 100 MG) PO SCH (09:00)
[2023-07-06] MEDS ORDERED: FLUT1BLS3 IH (09:00)
[2023-07-06] MEDS: LOSARTAN 50 MG TABLET PO SCH (09:00)
[2023-07-06] MEDS: MAG/ALUM/SIMETH 30 ML UDCUP PO PRN (09:18)
[2023-07-06] MEDS: DOXYCYCLINE HYCLATE 100 MG TABLET PO SCH ×2 (09:18→22:40)
[2023-07-06] MEDS: ENOXAPARIN SODIUM 30 MG/0.3 ML SQ SCH (09:19)
[2023-07-06] MEDS: SOLU-MEDROL 40MG VIAL IVP SCH (18:09)
[2023-07-06] MEDS: CEFTRIAXONE 1G VIAL IVPB SCH (18:09)
[2023-07-06] MEDS ORDERED: ATORVASTATIN 20 MG TABLET PO SCH (21:00)
[2023-07-07] VITALS (7 sets, daily range): BP systolic 140–159; BP diastolic 73–96; PULSE 67–88; RESP 18; O2SAT 96–98
[2023-07-07] MEDS: INSULIN HUMULIN R 100 UNIT/ML 3ML SQ SCH ×3 (01:45→11:30)
[2023-07-07 05:12] LABS: CREATININE 1.2 mg/dL (0.5-1.5); MAGNESIUM 2.5 mg/dL (1.80-2.40); POTASSIUM 5.1 mmol/L (3.5-5.1)
[2023-07-07 06:42] LABS: ALBUMIN 3.6 g/dL (3.5-5.0); BILIRUBIN,TOTAL 0.2 mg/dL (0.2-1.0); TOTAL PROTEIN, SERUM 7.6 g/dL (6.0-8.3)
[2023-07-07] MEDS: IPRATROPIUM/ALBUTEROL SULFATE 3 ML SOLUTION IH SCH ×2 (06:56→11:14)
[2023-07-07] MEDS ORDERED: PANTOPRAZOLE 40 MG TAB DR PO SCH (09:00)
[2023-07-07] MEDS ORDERED: Vitamin B Complex/Vit C/Folic Acid PO SCH (09:00)
[2023-07-07] MEDS ORDERED: LINAGLIPTIN 5 MG TABLET PO SCH (09:00)
[2023-07-07 09:04] LABS: BASOPHILS # (AUTO) 0.01 K/uL (0.00-0.20); BASOPHILS % (AUTO) 0.1 % (0.0-5.0); HEMATOCRIT 34.3 % (36-48); IMMATURE GRANULOCYTE ABSOLUTE 0.06 K/uL (0-1); LYMPHOCYTES # (AUTO) 1.5 K/uL (1.0-4.8); LYMPHOCYTES % (AUTO) 12.7 % (21.0-51.0); MEAN CORPUSCULAR HEMOGLOBIN 27.7 pg (27.0-33.0); MEAN CORPUSCULAR HGB CONC 33.2 g/dL (32.0-36.0); MEAN CORPUSCULAR VOLUME 83.5 fL (79-99); MONOCYTES # (AUTO) 0.4 K/uL (0.1-1.0); MONOCYTES % (AUTO) 3.3 % (3.0-13.0); NEUTROPHILS % (AUTO) 83.4 % (40.0-77.0); PLATELET COUNT (AUTO) 286 K/uL (130-400); RED BLOOD CELL COUNT(AUTO) 4.11 MIL/uL (4.00-5.50); RED CELL DISTRIBUTION WIDTH 14.4 % (11.0-15.5)
[2023-07-07] MEDS: LOSARTAN 50 MG TABLET PO SCH (09:16)
[2023-07-07] MEDS: AMLODIPINE 5 MG TAB PO SCH (09:16)
[2023-07-07] MEDS: FLUOXETINE HCL 10 MG CAPSULE PO SCH (09:16)
[2023-07-07] MEDS: DOXYCYCLINE HYCLATE 100 MG TABLET PO SCH (09:16)
[2023-07-07] MEDS: ENOXAPARIN SODIUM 30 MG/0.3 ML SQ SCH (09:17)
== END 2023-07-07 16:30 | disposition home or self-care (01) | DRG 871 ==
LOC: EDH 16:45 → EDHIP 18:28 → 4AH 07-05 16:50
PROVIDERS: ADMIT Internal Medicine Infectious Disease; ATTEND Internal Medicine Infectious Disease
DX: A41.9 Sepsis, unspecified organism (principal); J18.9 Pneumonia, unspecified organism; J44.0 Chronic obstructive pulmonary disease with (acute) lower respiratory infection; J45.901 Unspecified asthma with (acute) exacerbation; J44.1 Chronic obstructive pulmonary disease with (acute) exacerbation; I10 Essential (primary) hypertension; E11.9 Type 2 diabetes mellitus without complications; Z90.49 Acquired absence of other specified parts of digestive tract; Z90.710 Acquired absence of both cervix and uterus; Z83.3 Family history of diabetes mellitus
CPT/HCPCS: 36415; 36600; 71045; 80048; 80053; 82803; 82948; 83036; 83735; 84484; 85025; 93005; 94640; 94664; 96374; G0378; J0696; J1650; J1815; J2405; J2920; J2930

== ENCOUNTER 2023-07-29 11:22 | Emergency (ER) | payer MEDICARE ==
[~2023-07-29] VITALS: Ht 154.9 cm; Wt 71.7 kg
[~2023-07-29 11:22] MED LIST changes: -ACET-2247 PO; -ACET-66 PO; -AZIT250T9 PO; -BENZ200C53 PO; -BROM118S48 PO; -CETI10TA87 PO; -DICL1KIT20 TP; +FLUT1BLS3 IH; +FOLI0.8T22 PO; -IPRA3AMP24 IH; +ROSU5TAB12 PO
[2023-07-29 11:43] VITALS: BP 171/68; PULSE 104; RESP 18
[2023-07-29 12:00] LABS: BASOPHILS # (AUTO) 0.04 K/uL (0.00-0.20); BASOPHILS % (AUTO) 0.4 % (0.0-5.0); EOSINOPHILS # (AUTO) 0.08 K/uL (0.00-0.70); EOSINOPHILS % (AUTO) 0.7 % (0.0-8.0); HEMATOCRIT 35.4 % (36-48); IMMATURE GRANULOCYTE ABSOLUTE 0.05 K/uL (0-1); LYMPHOCYTES # (AUTO) 2.4 K/uL (1.0-4.8); LYMPHOCYTES % (AUTO) 22.6 % (21.0-51.0); MEAN CORPUSCULAR HEMOGLOBIN 27.8 pg (27.0-33.0); MEAN CORPUSCULAR HGB CONC 33.6 g/dL (32.0-36.0); MEAN CORPUSCULAR VOLUME 82.7 fL (79-99); MONOCYTES # (AUTO) 0.8 K/uL (0.1-1.0); NEUTROPHILS # (AUTO) 7.4 K/uL (1.8-7.7); NEUTROPHILS % (AUTO) 68.8 % (40.0-77.0); PLATELET COUNT (AUTO) 288 K/uL (130-400); RED BLOOD CELL COUNT(AUTO) 4.28 MIL/uL (4.00-5.50); RED CELL DISTRIBUTION WIDTH 13.3 % (11.0-15.5); WHITE BLOOD COUNT (AUTO) 10.8 K/uL (4.8-10.8)
[2023-07-29 12:14] LABS: CREATININE 1.2 mg/dL (0.5-1.5); POTASSIUM 3.5 mmol/L (3.5-5.1)
[2023-07-29 12:18] LABS: BILIRUBIN,TOTAL 0.4 mg/dL (0.2-1.0); TOTAL PROTEIN, SERUM 8.2 g/dL (6.0-8.3)
[2023-07-29] MEDS ORDERED: 0.9%NACL 1000ML 1,000 ML IV ONE (12:30)
[2023-07-29] MEDS ORDERED: KETOROLAC 15MG/ML VIAL (15MG/ML) IV ONE (12:30)
[2023-07-29 12:44] LABS: APPEARANCE,URINE CLEAR (CLEAR); BILIRUBIN,URINE NEGATIVE (NEGATIVE); COLOR,URINE YELLOW (YELLOW); GLUCOSE, URINE (UA) 300 mg/dL (NEGATIVE); KETONES,URINE NEGATIVE (NEGATIVE); LEUKOCYTE ESTERASE ,URINE NEGATIVE Leu/uL (NEGATIVE); NITRATE,URINE NEGATIVE (NEGATIVE); OCCULT BLOOD,URINE NEGATIVE (NEGATIVE); PH,URINE 5.5 (5.0-8.0); PROTEIN,URINE 20 mg/dL (NEGATIVE); UROBILINOGEN,URINE 0.2 mg/dL (0.2-1.0)
[2023-07-29 12:46] LABS: ADD UA MICROSCOPIC YES
[2023-07-29 12:54] LABS: MUCUS,URINE RARE LPF (None Seen); SQUAMOUS EPITHELIAL CELL,UR RARE /HPF (0-2); WBC,URINE 0-1 /HPF (0-1)
[2023-07-29] MEDS ORDERED: ONDANSETRON 4MG INJ ONE (13:36)
[2023-07-29] MEDS ORDERED: IOHEXOL-350 75 ML VIAL IV ONE (14:52)
== END 2023-07-29 16:43 | disposition home or self-care (01) ==
LOC: EDH 11:22
DX: N83.201 Unspecified ovarian cyst, right side (principal); I12.9 Hypertensive chronic kidney disease with stage 1 through stage 4 chronic kidney disease, or unspecified chronic kidney disease; E11.22 Type 2 diabetes mellitus with diabetic chronic kidney disease; N18.9 Chronic kidney disease, unspecified; J45.909 Unspecified asthma, uncomplicated; Z79.84 Long term (current) use of oral hypoglycemic drugs; Z79.899 Other long term (current) drug therapy; Z88.1 Allergy status to other antibiotic agents; Z88.5 Allergy status to narcotic agent; Z90.49 Acquired absence of other specified parts of digestive tract; Z90.710 Acquired absence of both cervix and uterus
CPT/HCPCS: 99284; 74177; 96374; 80053; 85025; 81001; 36415; J7030; J2405; J1885; Q9967

== ENCOUNTER → 2024-08-01 | Outpatient (CLI) | payer OTHER ==
[~2024-08-01] MED LIST changes: -FLUO10CA21 PO; -ROSU5TAB12 PO; +ROSU5TAB51 PO
--- NOTE | 2024-08-01 10:45 | HMCIMG ---
SCREENING MAMMOGRAM REASON: Annual Exam COMPARISON: 04/29/2020 TECHNIQUE: CC and MLO views of the bilateral breasts were performed.CAD was performed as well. FINDINGS: Parenchymal density: There are scattered areas of fibroglandular density. There are no focal mass lesions. There are scattered benign-appearing calcifications. There are no pathologic appearing calcifications. There is no evidence of architectural distortion or skin thickening. Particular attention to the subareolar region on the right shows normal mammographic findings. IMPRESSION: Stable screening mammogram. The patient was entered into a reminder system with a target due date for their next mammogram. BI-RADS CATEGORY 2: BENIGN FINDINGS Recommend monthly self breast exam as well as annual clinical examination. A negative x-ray should not delay biopsy if a dominant or clinically suspicious mass is present, since 8-10% of cancers are not identified by mammography. Dense breasts particularly, may obscure an underlying neoplasm. Some of these may be detected clinically and therefore, clinical examination is an essential part of breast evaluation.
== END | disposition home or self-care (01) ==
LOC: RAH 09:48
PROVIDERS: ATTEND Internal Medicine
DX: Z12.31 Encounter for screening mammogram for malignant neoplasm of breast (principal); R92.323 Mammographic fibroglandular density, bilateral breasts
CPT/HCPCS: 77067